=== PATIENT | female | born 1980 | race Caucasian/White ===

== ENCOUNTER 2017-12-15 07:17 | Emergency (ER) | payer SELFPAY | END 2017-12-15 08:10 | disposition home or self-care (01) | LOC: EDH 07:17 | DX: S16.1XXA Strain of muscle, fascia and tendon at neck level, initial encounter (principal); Z72.0 Tobacco use; X58.XXXA Exposure to other specified factors, initial encounter; Y93.84 Activity, sleeping; Y92.098 Other place in other non-institutional residence as the place of occurrence of the external cause; Y99.8 Other external cause status | CPT/HCPCS: 99281 ==

== ENCOUNTER 2025-06-21 21:24 | Inpatient (IN) | payer OTHER ==
[~2025-06-21] VITALS: Ht 167.6 cm; Wt 61.0 kg
--- NOTE | 2025-06-21 21:43 | EKG ---
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
[2025-06-21 21:57] LABS: IMMATURE GRANULOCYTE ABSOLUTE 0.01 K/uL (0-1); NUCLEATED RED BLOOD CELLS 0.0 % (0.0-0.19); PLATELET COUNT (AUTO) 312 K/uL (130-400); RED BLOOD CELL COUNT(AUTO) 4.14 MIL/uL (4.00-5.50); RED CELL DISTRIBUTION WIDTH 12.6 % (11.0-15.5); WHITE BLOOD COUNT (AUTO) 9.2 K/uL (4.8-10.8)
[2025-06-21 22:04] LABS: CREATININE 0.7 mg/dL (0.5-1.0); GLOMERULAR FILTR. RATE CALC 109.0 mL/min (>90); GLUCOSE,RANDOM 87.0 mg/dL (70-105); SODIUM SERUM 141.0 mmol/L (136-145); UREA NITROGEN, BLOOD 12.0 mg/dL (7-18)
[2025-06-21] MEDS: 0.9%NACL 1000ML 1,000 ML IV ONE (22:09)
[2025-06-21 22:33] LABS: ASPARTATE AMINOTRANSFERASE 21.0 U/L (10-37); CREATINE KINASE, TOTAL 32.0 U/L (21-232); TOTAL PROTEIN, SERUM 6.6 g/dL (6.0-8.3)
[2025-06-21 23:10] LABS: APPEARANCE,URINE CLEAR (CLEAR); GLUCOSE, URINE (UA) NEGATIVE (NEGATIVE); LEUKOCYTE ESTERASE ,URINE NEGATIVE Leu/uL (NEGATIVE); NITRATE,URINE NEGATIVE (NEGATIVE); OCCULT BLOOD,URINE NEGATIVE (NEGATIVE)
[2025-06-21 23:11] LABS: ADD UA MICROSCOPIC NO
--- NOTE | 2025-06-21 23:29 | NUR ---
TRANSFERED CARE TO CN AT THIS TIME
--- NOTE | 2025-06-21 23:52 | ERN ---
ED Note History of Present Illness Stated Complaint: DIZZINESS, ABD PAIN, BLURRING TO LEFT EYE, X 1 WK Chief Complaint: Dizzy/Light Headed Time Seen by MD: 21:42 Time Seen by Midlevel: 21:42 Dictation: The patient is a 45-year-old female with history of tubal ligation who presents to the emergency department with complaints of right-sided headache, generalized weakness, dizziness onset two weeks ago. Patient reports that for the past three days she has had syncopal episodes x3. Patient denies any trauma from the syncope episode. Denies any LOC denies any fevers denies any diarrhea or vomiting. Patient reports also that she has been having right upper quadrant pain with nausea. Allergies: Coded Allergies: No Known Allergies (Unverified Allergy, Unknown, 06/21/25) Past Medical History Past Medical History: No Pertinent History Surgical History: Tonsillectomy, Other Surgical History Other: TUBAL LIGATION LMP: May 23, 2025 RN Note Reviewed/Agreed w/PFSH: Yes Review of System Dictation Constitutional: Negative for fever,chills, and weight loss Eyes: Negative for injury, pain,redness, and discharge ENT: Negative for injury,pain or swelling Cardiovascular: Negative for chest pain, palpitations, and edema Respiratory: Negative for shortness of breath, cough, and wheezing, Abdomen/GI: Negative for vomiting, diarrhea, and constipation positive for abdominal pain, nausea Back: Negative for injury and pain : Negative for injury, bleeding and discharge MS/Extremity: Negative for injury and deformity Skin: Negative for rash, and discoloration Neuro: Negative for numbness, tingling, and seizure positive for headache, weakness, dizziness Psych: Negative for suicide ideation, homicidal ideation, and hallucinations Initial Vital Sign VS Vital Signs Date Time Temp Pulse Resp B/P (MAP) Pulse Ox O2 Delivery O2 Flow Rate FiO2 06/21/25 21:30 97.9 73 20 95/65 100 Room Air 06/21/25 23:07 0 21 Physical Exam Dictation Vital Signs reviewed General Appearance: Alert, oriented x 3, no acute distress, well developed, nourished. Head and Face: non-traumatic. Eyes: PERRL, pink conjunctivas, eyelid no trauma, anterior chamber with arcus senilis. Ears: Pinnas intact and no signs of trauma or erythema ear canals clear and no discharge TM no erythema Nose: No discharge, no bleeding. Oropharynx: Mouth normal, tongue pink. pharynx clear,no erythema, tonsils no exudates, no abscesses noted, mucous membrane moist Neck: Supple, non-tender, no thyromegaly, no masses, no JVD, no bruits Breast:Deferred Chest:No tenderness, no crepitus, no paradoxical movement, no retractions Lungs:Clear, well-ventilated, symmetric, no rales, no wheezing, no rhonchi, no stridor, good breath sounds bilaterally Heart: Regular rate, regular rhythm, no murmur, no gallops Vascular: no peripheral edema, Abdomen: Soft, positive bowel sounds, nondistended, no guarding, nontender, no rebound, no masses no hepatomegaly, no splenomegaly, no Muller's sign, no hernias. Rectal: Deferred Genital: Deferred Neurological: Normal speech, motor function intact, sensory function intact , upper extremities equal in strength, lower extremities equal in strength Musculoskeletal: Neck nontender, full range of motion, back nontender, full range of motion, Extremities: nontender, full range of motion Skin: Color pink, dry, no turgor, no rash, no lacerations, no abrasions, no contusions. Lymphatic: Deferred Results (Laboratory/Radiology) Laboratory/Radiology Laboratory Tests Test 06/21/25 21:46 06/21/25 23:00 White Blood Count 9.2 K/uL (4.8-10.8) Red Blood Count 4.14 MIL/uL (4.00-5.50) Hemoglobin 13.4 g/dL (12.0-16.0) Hematocrit 40.7 % (36-48) Mean Corpuscular Volume 98.3 fL (79-99) Mean Corpuscular Hemoglobin 32.4 pg (27.0-33.0) Mean Corpuscular Hemoglobin Concent 32.9 g/dL (32.0-36.0) Red Cell Distribution Width 12.6 % (11.0-15.5) Platelet Count 312 K/uL (130-400) Mean Platelet Volume 10.1 fL (7.5-10.5) Immature Granulocyte % (Auto) 0.1 % (0-1) Neutrophils (%) (Auto) 50.0 % (40.0-77.0) Lymphocytes (%) (Auto) 38.7 % (21.0-51.0) Monocytes (%) (Auto) 5.8 % (3.0-13.0) Eosinophils (%) (Auto) 5.0 % (0.0-8.0) Basophils (%) (Auto) 0.4 % (0.0-5.0) Neutrophils # (Auto) 4.6 K/uL (1.8-7.7) Lymphocytes # (Auto) 3.6 K/uL (1.0-4.8) Monocytes # (Auto) 0.5 K/uL (0.1-1.0) Eosinophils # (Auto) 0.46 K/uL (0.00-0.70) Basophils # (Auto) 0.04 K/uL (0.00-0.20) Absolute Immature Granulocyte (auto 0.01 K/uL (0-1) Nucleated Red Blood Cells 0.0 % (0.0-0.19) Sodium Level 141 mmol/L (136-145) Potassium Level 3.8 mmol/L (3.5-5.1) Chloride Level 107 mmol/L (101-111) Carbon Dioxide Level 31 mmol/L (21-32) Blood Urea Nitrogen 12 mg/dL (7-18) Creatinine 0.7 mg/dL (0.5-1.0) Glomerular Filtration Rate Calc 109 mL/min (>90) Random Glucose 87 mg/dL (70-105) Total Calcium 8.8 mg/dL (8.5-10.1) Total Bilirubin 0.6 mg/dL (0.2-1.0) Direct Bilirubin 0.2 mg/dL (0.0-0.3) Aspartate Amino Transf (AST/SGOT) 21 U/L (10-37) Alanine Aminotransferase (ALT/SGPT) 37 U/L (12-78) Alkaline Phosphatase 61 U/L (50-136) Total Creatine Kinase 32 U/L (21-232) Troponin I High Sensitivity < 4 ng/L (4-50) L Total Protein 6.6 g/dL (6.0-8.3) Albumin 3.8 g/dL (3.5-5.0) Lipase 19 U/L (16-77) Urine Color YELLOW (YELLOW) Urine Appearance CLEAR (CLEAR) Urine pH 6.5 (5.0-8.0) Urine Specific Epps 1.021 (1.001-1.031) Urine Protein NEGATIVE mg/dL (NEGATIVE) Urine Glucose (UA) NEGATIVE mg/dL (NEGATIVE) Urine Ketones NEGATIVE mg/dL (NEGATIVE) Urine Occult Blood NEGATIVE (NEGATIVE) Urine Nitrate NEGATIVE (NEGATIVE) Urine Bilirubin NEGATIVE mg/dL (NEGATIVE) Urine Urobilinogen 0.2 mg/dL (0.2-1.0) Urine Leukocyte Esterase NEGATIVE Zoey/uL Urine HCG, Qualitative NEGATIVE (NEGATIVE) REASON: abd pain ORDERING PHYSICIAN: DAVID SILVER END STAPLER PROCEDURE: ABDRUQLTD - US ABDOMINAL RUQ\LTD EXAM: US Abdomen, Right Upper Quadrant. CLINICAL HISTORY: Abdominal pain. TECHNIQUE: Right upper quadrant sonography performed with image documentation. COMPARISON: None provided. FINDINGS: LIVER: Within normal limits in size and echogenicity. No mass. Liver measures 14.7 cm. GALLBLADDER: The gallbladder appears normal. No gallbladder wall thickening seen. Wall thickness measures 1 mm. No gallstones are evident. COMMON BILE DUCT: Within normal limits in size. Common bile duct measures 5 mm. PANCREAS: The visualized pancreas appears within normal limits. The distal pancreas is obscured by bowel gas. RIGHT KIDNEY: Unremarkable. The right kidney measures 10.5 x 3.4 x 3.9 cm. Normal renal contours. 9 x 9 x 7 mm echogenic lesion likely an angiomyolipoma. No calculus. No hydronephrosis. IMPRESSION: No acute pathology. 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 /[place] REASON: syncope ORDERING PHYSICIAN: DAVID SILVER END STAPLER PROCEDURE: HEAD WO - CT HEAD/BRAIN W/O CONTRAST EXAM: Non-contrast CT examination of the Brain CLINICAL HISTORY: Syncope. TECHNIQUE: Thin collimated axial CT images of the brain were obtained, with sagittal and coronal reformatted images also submitted. CT scan done according to ALARA (As Low as Reasonably Achievable). CONTRAST USED: None. COMPARISON: None provided. FINDINGS: No acute intracranial abnormality is present. No acute cortical infarction, hemorrhage, mass, or mass effect. No hydrocephalus or abnormal extra-axial fluid collections. The posterior fossa is unremarkable. The skull base and calvarium are intact. The included portions of the paranasal sinuses and mastoid air cells are clear. IMPRESSION: No acute intracranial abnormality is present. /[place] REASON: cp ORDERING PHYSICIAN: DAVID SILVER PROCEDURE: CXR1VW - CHEST 1VW EXAM: CR Chest, 1 view CLINICAL HISTORY: Chest pain. COMPARISON: None provided. FINDINGS: 0.2 cm calcified granuloma in the left mid zone. Mildly hyperinflated lungs, concerning mild bronchial asthma or COPD. The lungs show no infiltrates or other acute findings. No pleural effusion or pneumothorax. The cardiomediastinal silhouette is within normal limits. No acute osseous abnormality. IMPRESSION: No acute cardiopulmonary process is evident. 0.2 cm calcified granuloma in the left mid zone. Mildly hyperinflated lungs, concerning mild bronchial asthma or COPD. /[place] Labs Reviewed?: Yes EKG: (+) rhythm (Sinus rhythm) EKG Comment: Date:06/21/2025 Time:2138 Ventricular rate:67 DE interval:151 QRS duration:103 QT/QTc:422/446 EKG interpretation: Sinus rhythm Reviewed by ED Attending no STEMI ED Course ED Course Orders Procedure Category Date Status Time Vital Signs Per CPOE 06/21/25 Transmitted Routine 21:36 Saline Lock Iv CPOE 06/21/25 Transmitted 21:36 Cbc With Differential LAB 06/21/25 Complete 21:36 Lipase LAB 06/21/25 Complete 21:36 Urinalysis Profile LAB 06/21/25 Complete 21:36 Basic Metabolic Panel LAB 06/21/25 Complete 21:36 12 Lead Ekg Tracing- EKG 06/21/25 Complete Technical 21:37 Hepatic Function Panel LAB 06/21/25 Complete 21:59 Orthostatic Vital CPOE 06/21/25 Transmitted Signs 21:59 Ct Head/Brain W/O CT 06/21/25 Resulted Contrast 21:59 Us Abdominal Ruq\Ltd US 06/21/25 Resulted 21:59 Troponin I High LAB 06/21/25 Complete Sensitivity 21:59 Creatine Kinase, Total LAB 06/21/25 Complete 21:59 0.9%Nacl 1000ml (Ns PHA 06/21/25 Complete 1000ml) 22:00 Ondansetron 4mg Inj PHA 06/21/25 Complete (Zofran 4mg Inj) 22:00 Pantoprazole 40mg Inj PHA 06/21/25 Complete (Protonix 40mg Inj 22:00 Chest 1vw RAD 06/21/25 Resulted 22:53 ,Urine Test LAB 06/21/25 Complete 23:47 Fall Precautions CPOE 06/22/25 Transmitted 01:32 Neuro Checks Every 4 CPOE 06/22/25 Transmitted Hours 01:32 Echo 2-D Complete ECHO 06/22/25 Logged 01:32 Us Carotid Duplex US 06/22/25 Logged 01:32 Orthostatic Vital CPOE 06/22/25 Transmitted Signs 01:32 Basic Metabolic Panel LAB 06/22/25 Logged 04:00 Cbc With Differential LAB 06/22/25 Logged 04:00 Magnesium LAB 06/22/25 Logged 04:00 Phosphorus LAB 06/22/25 Logged 04:00 Acetaminophen 325 Tab PHA 06/22/25 In Process (Tylenol 325mg Tab 02:00 Enoxaparin Sodium 40 PHA 06/22/25 In Process Mg/0.4 Ml (Lovenox) 09:00 Famotidine 20mg Tab PHA 06/22/25 In Process (Pepcid 20mg Tab) 09:00 Hydralazine 20mg Inj PHA 06/22/25 Logged (Apresoline 20mg In 02:00 Morphine 4mg Syg PHA 06/22/25 Logged (Morphine 4mg Syg) 02:00 Ondansetron 4mg Inj PHA 06/22/25 Logged (Zofran 4mg Inj) 02:00 Admit Orders ADM 06/22/25 Transmitted 01:36 Current Medications Medications (Trade) Dose Ordered Sig/Willy Route PRN Reason Start Time Stop Time Status Last Admin Dose Admin Acetaminophen (TYLenol 325MG TAB) 650 mg Q6H PRN PO TEMPERATURE GREATER THAN 101.5 06/22/25 02:00 07/22/25 01:59 Enoxaparin Sodium (Lovenox) 40 mg DAILY SQ 06/22/25 09:00 07/22/25 08:59 Famotidine (Pepcid 20mg Tab) 20 mg DAILY PO 06/22/25 09:00 07/22/25 08:59 Hydralazine HCl (APRESOLine 20MG INJ) 10 mg Q6H PRN IV For:SBP above 160;DBP above 90 06/22/25 02:00 07/22/25 01:59 Morphine Sulfate (morPHINE 4MG SYG) 2 mg Q4H PRN IVP SEVERE PAIN (7-10) 06/22/25 02:00 06/29/25 01:59 UNV Ondansetron HCl (zoFRAN 4MG INJ) 4 mg ONCE ONCE IVP 06/21/25 22:00 06/21/25 22:02 DC 06/21/25 22:10 Ondansetron HCl (zoFRAN 4MG INJ) 4 mg Q6H PRN IV NAUSEA/VOMITING 06/22/25 02:00 07/22/25 01:59 Pantoprazole Sodium (PROTonix 40MG INJ) 40 mg ONCE ONCE IVP 06/21/25 22:00 06/21/25 22:02 DC 06/21/25 22:10 Sodium Chloride 1,000 ml @ 0 mls/hr ONCE ONCE IV 06/21/25 22:00 06/21/25 22:02 DC 06/21/25 22:09 Vital Signs Date Time Temp Pulse Resp B/P (MAP) Pulse Ox O2 Delivery O2 Flow Rate FiO2 06/21/25 23:25 98.2 55 16 112/70 98 Room Air* 0 21 06/21/25 23:07 98.2 65 16 115/70 98 Room Air* 0 21 06/21/25 21:30 97.9 73 20 95/65 100 Room Air Medical Decision Making MDM MDM: The patient is a 45-year-old female with history of tubal ligation who presents to the emergency department with complaints of right-sided headache, generalized weakness, dizziness onset two weeks ago. Patient reports that for the past three days she has had syncopal episodes x3. Patient denies any trauma from the syncope episode. Denies any LOC denies any fevers denies any di arrhea or vomiting. Patient reports also that she has been having right upper quadrant pain with nausea. CBC showed no leukocytosis, no anemia, chemistry showed no electrolyte imbalance, negative troponin, normal liver enzymes, negative lipase, urinalysis unremarkable. CT head showed no acute pathology. X-ray showed hyperinflated lungs, Patient received IV fluids. Reports she still feels weak and reports concerned for syncopal episodes. Given patient already had multiple syncope episode so to home We will admit patient for further evaluation and management. Differential diagnosis: Intracerebral hemorrhage, orthostatic hypotension, dehydration, gallstones, electrolyte imbalance, tachyarrhythmia Comorbidities: Tubal ligation Tests considered and not ordered secondary to shared decision making include: none Previous outside records reviewed: none Risk of complication and/or morbidity or mortality of patient management: The patient meets criteria for admission. Need for emergency major/minor surgery: No There are no social concerns with this patient. I independently interpreted the tests I ordered (labs, urinalysis, etc.). I discussed the case with the hospitalist for admission. Raymond TAPIA who accepts admission I discussed the case with the following specialists: none. Historian: pateint. I independently interpreted imaging studies and EKGs that I ordered (US, CT, XR, EKG, etc.). External chart review: none. Medical management and examination interpretation discussions were had by me with other qualified healthcare professionals as indicated for the patient's care. DX & DISP Disposition: Inpatient Decision to Admit Date: Jun 22, 2025 Decision to Admit Time: 01:43 Departure Impression: Primary Impression: Syncope Additional Impressions: Weakness, Abdominal pain Condition: Stable Referrals: JIMMY PEPE DO (PCP) I have reviewed the case, and I agree with, Diagnosis and Plan DAVID SILVER Jun 21, 2025 23:52
[2025-06-22] VITALS (9 sets, daily range): BP systolic 97–118; BP diastolic 53–79; PULSE 51–81; RESP 16–20; TEMP 97.5–98.2; O2SAT 100
--- NOTE | 2025-06-22 00:15 | HMCIMG ---
EXAM: US Abdomen, Right Upper Quadrant. CLINICAL HISTORY: Abdominal pain. TECHNIQUE: Right upper quadrant sonography performed with image documentation. COMPARISON: None provided. FINDINGS: LIVER: Within normal limits in size and echogenicity. No mass. Liver measures 14.7 cm. GALLBLADDER: The gallbladder appears normal. No gallbladder wall thickening seen. Wall thickness measures 1 mm. No gallstones are evident. COMMON BILE DUCT: Within normal limits in size. Common bile duct measures 5 mm. PANCREAS: The visualized pancreas appears within normal limits. The distal pancreas is obscured by bowel gas. RIGHT KIDNEY: Unremarkable. The right kidney measures 10.5 x 3.4 x 3.9 cm. Normal renal contours. 9 x 9 x 7 mm echogenic lesion likely an angiomyolipoma. No calculus. No hydronephrosis. IMPRESSION: No acute pathology. 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 /[place]
--- NOTE | 2025-06-22 00:40 | HMCIMG ---
EXAM: Non-contrast CT examination of the Brain CLINICAL HISTORY: Syncope. TECHNIQUE: Thin collimated axial CT images of the brain were obtained, with sagittal and coronal reformatted images also submitted. CT scan done according to ALARA (As Low as Reasonably Achievable). CONTRAST USED: None. COMPARISON: None provided. FINDINGS: No acute intracranial abnormality is present. No acute cortical infarction, hemorrhage, mass, or mass effect. No hydrocephalus or abnormal extra-axial fluid collections. The posterior fossa is unremarkable. The skull base and calvarium are intact. The included portions of the paranasal sinuses and mastoid air cells are clear. IMPRESSION: No acute intracranial abnormality is present. /[place]
--- NOTE | 2025-06-22 01:07 | HMCIMG ---
EXAM: CR Chest, 1 view CLINICAL HISTORY: Chest pain. COMPARISON: None provided. FINDINGS: 0.2 cm calcified granuloma in the left mid zone. Mildly hyperinflated lungs, concerning mild bronchial asthma or COPD. The lungs show no infiltrates or other acute findings. No pleural effusion or pneumothorax. The cardiomediastinal silhouette is within normal limits. No acute osseous abnormality. IMPRESSION: No acute cardiopulmonary process is evident. 0.2 cm calcified granuloma in the left mid zone. Mildly hyperinflated lungs, concerning mild bronchial asthma or COPD. /[place]
--- NOTE | 2025-06-22 01:36 | HP ---
History of Present Illness Reason for Visit: dizziness History of Present Illness Ms. Ponce is a 45-year-old female that was seen and examined today on 06/22/2025. Patient is a good historian of personal health Patient came to the emergency department with a chief complaint of dizziness. Onset was two weeks ago. Location is head. Duration is on and off. Character is described as difficulty getting balance. Symptoms seemingly alleviated on their own. There was no aggravating factors. Patient denies any associated chest pain or shortness and breath. Patient reports associated headache and weakness. Today in the emergency department CBC unremarkable, chemistry unremarkable, urinalysis unremarkable, abdominal ultrasound unremarkable, chest x-ray unremarkable, CT of head unremarkable. Emergency room physician recommended patient be admitted with a diagnosis of dizziness. Past Medical History ADDITIONAL PAST MEDICAL HISTORY: [Denies] SOCIAL HISTORY: [Patient smokes half a pack of cigarettes daily, alcohol use, drug use. Patient denies drug use however her drug screen is positive for benzodiazepine, cocaine and marijuana. Patient lives with her oldest daughter, Chapis ponce. And her 4-year-old grandson that she has custody of. SURGICAL HISTORY: [BTL, tonsillectomy] Review of Systems General: No Fever, No Chills, No Night Sweats, No Fatigue, No Malaise, No Appetite, No Other HEENT: No Head Aches, No Visual Changes, No Eye Pain, No Ear Pain, No Dysphasia, No Sinus Congestion, No Post Nasal Drip, No Sore Throat, No Other Pulmonary: No Dyspnea, No Cough, No Pleuritic Chest Pain, No Other Cardiovascular: Lt Headedness; No: Chest Pain, Palpitations, Orthopnea, Paroxysmal Noc. Dyspnea, Edema, Other Gastrointestinal: No: Nausea, Vomiting, Abdominal Pain, Diarrhea, Constipation, Melena, Hematochezia, Other Genitourinary: No Dysuria, No Frequency, No Incontinence, No Hematuria, No Retention, No Other Musculoskeletal: No: other, neck pain, shoulder pain, arm pain, back pain, hand pain, leg pain, foot pain Skin: No Urticaria, No Rash, No Other Neurological: Weakness, Other (Headache); No: Numbness, Incoordination, Change in speech, Confusion, Seizures Allergies: Coded Allergies: No Known Allergies (Unverified Allergy, Unknown, 06/21/25) No Active Prescriptions or Reported Meds Exam Vital Signs Vital Signs Date Time Temp Pulse Resp B/P (MAP) Pulse Ox O2 Delivery O2 Flow Rate FiO2 06/21/25 23:25 98.2 55 16 112/70 98 Room Air* 0 21 General Appearance: Alert, Oriented X3, Cooperative, No acute distress HEENT: Atraumatic, EOMI Respiratory: Clear to auscultation, Normal air movement, NL respiratory effort Cardiovascular: Regular rate, Regular rhythm, Normal S1, Normal S2 Abdominal: Normal bowel sounds, Soft, No tenderness Extremities: No edema Skin: No significant lesion Neuro: Normal speech, Strength at 5/5 X4 ext, Sensation intact, Cranial nerves 3-12 NL Psych/Mental Status: Mental status NL, Mood NL, Thoughts/Content NL Assessment/Plan ASSESSMENT: [ Dizziness, POA Tobacco dependence, POA Polysubstance abuse] PLAN: [ Admit patient to medical floor as inpatient status. Check orthostatic vital signs once per shift Fall precautions Ultrasound carotid Doppler, follow up with the results 2D echo, follow up with the results Neuro checks every 4 hours with the vital signs (check GCS, level of consciousness, extremity movement, pupil reaction, hand grasp strength, speech clarity Patient denies any substance abuse however her urine drug screen is positive for cocaine, marijuana and benzodiazepines. I suspect this may contributing to her dizziness episodes. Consult patient on smoking cessation Nicotine patch 14 mg transdermally once daily GI prophylaxis, famotidine DVT prophylaxis, Lovenox ADVANCED CARE PLANNING 1. Which of the following were discussed? Hospice Care - Yes Therapeutic options - yes Advance Directives - Yes - patient states she does not have any advance directives in place at this time. Other discussions - patient wishes to remain a full code at this time 2. Discussed with who? Patient 3. Voluntary nature of this service was explained to the patient? Yes 4. Amount of time spent - ___16 minutes____ 5. Reviewed by Physician? (if this service was performed by NPP) Yes This document was generated in part using voice recognition software, occasional wrong word or sound alike substitutions may have occurred due to the inherent limitations of voice recognition software. Read the chart carefully and re cognize using context, where the substitutions have occurred. Although every effort was made to edit the content, locomotive operator and typing errors may occur ATTESTATION BY PHYSICIAN I have seen and examined the patient. I reviewed the documentation, medical decision making, and treatment plan as noted by the mid-level provider above. I agree with the findings and plan of care. [facility] Jun 22, 2025 01:35
--- NOTE | 2025-06-22 02:30 | HMCIMG ---
EXAM: Ultrasound Duplex Study of Bilateral Carotid and Vertebral Arteries. CLINICAL HISTORY: Dizziness. TECHNIQUE: Real-time 2D ferrera-scale ultrasound with color Doppler and spectral waveform analysis of the bilateral carotid and vertebral arteries. COMPARISON: None provided. FINDINGS: RIGHT CAROTID SYSTEM: Common Carotid Artery (CCA): PSV 98 cm/s. No significant stenosis. Internal Carotid Artery (ICA): PSV 97 cm/s. No significant stenosis. External Carotid Artery (ECA): PSV 103 cm/s. Normal flow. ICA/CCA Ratio: 1.0. Within normal limits. Vertebral Artery: Antegrade flow. Velocity 56 cm/s. Plaque: None visualized. LEFT CAROTID SYSTEM: Common Carotid Artery (CCA): PSV 72 cm/s. No significant stenosis. Internal Carotid Artery (ICA): PSV 101 cm/s. No significant stenosis. External Carotid Artery (ECA): PSV 77 cm/s. Normal flow. ICA/CCA Ratio: 1.4. Within normal limits. Vertebral Artery: Antegrade flow. Velocity 63 cm/s. Plaque: None visualized. SOFT TISSUES: No incidental abnormalities noted. IMPRESSION: No hemodynamically significant stenosis identified in the bilateral carotid or vertebral arteries as per NASCET criteria. /[place]
[2025-06-22 03:28] LABS: AMPHET/METH SCREEN,URINE NEGATIVE (NEGATIVE); BARBITURATE SCREEN, URINE NEGATIVE (NEGATIVE); CANNABINOID SCREEN,URINE POSITIVE (NEGATIVE); COCAINE SCREEN,URINE POSITIVE (NEGATIVE)
[2025-06-22] MEDS: NICOTINE 14 MG/ 24 HR PATCH TD ONE (04:41)
--- NOTE | 2025-06-22 05:11 | NUR ---
ORTHOSTATIC VITALS DONE AT 0215. BED 109/68 P80 O2 100% STANDING 115/74 P83 O2 100%
[2025-06-22 05:56] LABS: IMMATURE GRANULOCYTE ABSOLUTE 0.01 K/uL (0-1); NUCLEATED RED BLOOD CELLS 0.0 % (0.0-0.19); PLATELET COUNT (AUTO) 275 K/uL (130-400); RED BLOOD CELL COUNT(AUTO) 3.59 MIL/uL (4.00-5.50); RED CELL DISTRIBUTION WIDTH 12.5 % (11.0-15.5); WHITE BLOOD COUNT (AUTO) 9.2 K/uL (4.8-10.8)
[2025-06-22 06:22] LABS: CREATININE 0.7 mg/dL (0.5-1.0); GLOMERULAR FILTR. RATE CALC 109.0 mL/min (>90); GLUCOSE,RANDOM 87.0 mg/dL (70-105); PHOSPHORUS 3.1 mg/dL (2.5-4.9); SODIUM SERUM 138.0 mmol/L (136-145); UREA NITROGEN, BLOOD 10.0 mg/dL (7-18)
[2025-06-22] MEDS: FAMOTIDINE 20MG TAB PO SCH (08:40)
[2025-06-22] MEDS: ENOXAPARIN SODIUM 40 MG/0.4 ML SYRINGE SQ SCH (08:40)
[2025-06-22] MEDS ORDERED: MAGNESIUM 2GM PREMIX 50ML 50 ML IV PRN (11:00)
--- NOTE | 2025-06-22 11:46 | NUR ---
DCP: HOME Pt currently lives with dgt Gladys Plummer [phone] and david. Pt does not report having any DME, home health, or provider services. Pt denies any need for referrals for substance abuse. PCP is Dr. Jemima Goodman and uses [facility] for any RX needs. At [place] pt will want to go home and family can assist with transportation. Addendum: 06/22/25 at 1151 by AMOS FANG SS Amended: Links added.
--- NOTE | 2025-06-22 13:56 | HMCSR ---
APPROVED REPORT EXAM: Two-dimensional and M-mode echocardiogram with Doppler and color Doppler. INDICATION ICD: Dizziness 2D Dimensions RVDd3.8 cmLVEF(%)58.4 (>50%)LVED Vol(simp.)83.0 mL IVSd0.6 (0.7-1.1cm)FS(%)31 %LVES Vol(simp.)33.0 mL LVDd4.3 (3.8-5.6cm)LA (2D)2.9 (1.6-4.0cm)LVEF(%, simp.)60 % PWd0.6 (0.7-1.1cm)Ao Root(2D)2.8 (2.0-3.7cm)LA ESV INDEX (BP)26.65 mL/m2 IVSs0.8 cmLVOT diam2.3 (1.8-2.4cm) LVDs3.0 (2.5-4.0cm)IVC diam1.8 cm PWs0.8 cm Deformation Strain Apical 4-21.6 % Apical 2-22.5 % Apical 3-23.7 % Global Strain-22.6 % M-Mode Dimensions EPSS0.6 cm LA (MM)3.4 (1.6-4.0cm) Ao Root(MM)2.6 (2.0-3.7cm) Aortic Valve AoV Vmax1.5 m/Karel Peak GR8.4 mmHgLVOT Vmax1.0 m/s AoV VTI0.3 mAo Mean GR4.2 mmHgLVOT VTI0.23 m INGRID (VMAX)2.80 cm2AVA (VTI) 2.8 cm2 Mitral Valve MV E Vmax97.9 cm/sDECEL Pjlx940 ms MV A Vmax36.8 cm/sP 1/2 T60 ms E/A ratio2.7MVA (PHT)3.7 cm2 TDI E/E' Zzcodd75.0E/E' Lateral7.7 Medial E' Peak V7.54 cm/sLateral E' Peak V12.79 cm/s Pulmonary Valve PV Vmax0.9 m/sPV VTI0.23 mPV Mean GR1.7 mmHg PV Peak GR3.0 mmHgPI End Keira. Connor 93.9 cm/s Tricuspid Valve TR Vmax2.4 m/sRAP (EST) 3 cjJcTRBK64.6 mmHg TR Peak GR24.6 mmHg Left Ventricle The left ventricle is normal size. GLS -23.0% There is normal left ventricular wall thickness. LVEF i s 60-65%. The left ventricular diastolic function is normal. Right Ventricle The right ventricle is normal size. The right ventricular systolic function is normal. Atria The left atrium size is normal. The right atrium size is normal. Aortic Valve The aortic valve is normal in structure. No aortic regurgitation is present. There is no aortic valvu lar stenosis. Mitral Valve The mitral valve is normal in structure. There is trivial mitral valve regurgitation noted. There is no mitral valve stenosis. Tricuspid Valve The tricuspid valve is normal in structure. There is no trace of tricuspid valve regurgitation noted. Pulmonic Valve The pulmonary valve is normal in structure. There is trace of pulmonic valvular regurgitation. Great Vessels The aortic root is normal in size. The IVC is normal in size and collapses >50% with inspiration. Pericardium There is no pericardial effusion. Other Information Quality : Adequate Conclusion LVEF is 60-65%. GLS -23.0%
[2025-06-22] MEDS: PoTASSium chloRIDE 20MEQ ER 20 MEQ ERTAB PO PRN (15:23)
--- NOTE | 2025-06-22 16:28 | PN ---
[facility] PROGRESS NOTE Date of Service: Jun 22, 2025 Time of Service: 16:21 SUBJECTIVE: She is a 45 year old female with no past medical history and she surgical history of BTL and tonsillectomy came to the hospital with complaint of dizziness which started 2weeks, on and off, vertigo, blurred vision in left eye, headache on right side. There was no aggravating factors. She also complained of abdominal pain at epigastrium region. Eating food makes the pain worse. Had nausea yesterday. She also had constant back pain which is more on the right side and she feels like her butt bone is breaking Patient denies any associated chest pain or shortness and breath. She had a fall yesterday and has a scrap on right leg. She also complained of tingling of right hand. She smokes half a pack of cigarettes daily, alcohol use, drug use. In the emergency department CBC un remarkable, chemistry unremarkable, urinalysis unremarkable, abdominal ultrasound unremarkable, chest x-ray unremarkable, CT of head unremarkable. She denies drug use however her drug screen is positive for benzodiazepine, cocaine and marijuana. Patient lives with her oldest daughter, Chapis quintanilla and her 4-year-old grandson that she has custody of. She was admitted for further management. 06/22/2025: Patient is seen and evaluated in the room 415. Patient has no improvement in her symptoms. She has tenderness in the epigastrium region. Her vitals are in the normal range. Orthostatic vitals are normal. Her labs are in the normal range except for Hb is 11.8, potassium is 3.3, calcium is 8.2. We ordered CT abdomen and pelvis without contrast for the abdominal pain and CT lumbosacral spine, X-ray sacrum for lower back pain. We also ordered GI consult and waiting for their recommendations. Also ordered Hepatitis B, C, HIV. We changed famotidine from oral to IV. REVIEW OF SYSTEMS CONSTITUTIONAL: Lower back pain, tingling sensation in right hand Denies fevers, chills, or night sweats. No unintentional weight loss reported. NEUROLOGICAL: Dizziness Denies headache, amaurosis fugax, motor weakness, sensory deficit, gait abnormalities, or tremors. ENT: No hearing loss, otalgia, otorrhea, rhinitis, rhinorrhea, hoarseness, or sore throat. CARDIOVASCULAR: Denies any exertional angina, dyspnea on exertion, orthopnea, paroxysmal nocturnal dyspnea, palpitations, life-threatening arrhythmias, claudication. PULMONARY: Denies any shortness of breath, cough, phlegm/sputum, hemoptysis, pleuritic chest pain. SLEEP: Denies morning headaches, daytime somnolence or napping. Denies difficulty falling asleep, staying asleep, waking from sleep. Denies knowledge of snoring. GASTROINTESTINAL: Abdominal Pain Denies any type of dysphagia to either liquids or solids. Denies nausea, vomiting, pyrosis, early satiety, diarrhea, constipation, or changes in stool consistency or caliber. Denies coffee-ground emesis, hematemesis, hematochezia, or melanotic stools. GENITOURINARY: Denies frequency, urgency, nocturia, hematuria or incontinence (Storage/Irritative symptoms.) Low urinary stream, straining to void, urinary intermittency or hesitancy, splitting of the voiding stream, terminal dribbling. ENDOCRINOLOGIC: Denies polyuria, polydipsia, polyphagia or heat/cold intolerances. HEMATOLOGIC: Denies thrombophilia/previous clots, or coagulopathy/bleeding disorders. ONCOLOGIC: Denies personal history of malignancy. DERMATOLOGIC: Denies rashes or pruritus. PSYCHIATRIC: Denies any suicidal or homicidal ideation. Denies hallucinations. PHYSICAL EXAM GENERAL APPEARANCE: The patient is awake, alert, and oriented, in no acute cardiopulmonary distress. NEUROLOGICAL: Cranial nerves II-XII grossly intact. Motor is 5/5 in bilateral upper and lower extremities proximal to distal. No sensory deficits. HEENT: Face is symmetric. Pupils are equal and reactive. Extraocular movements are intact. NECK: Supple. No JVD. No thyromegaly. No submental, submandibular, pre- /postauricular, occipital or supraclavicular lymphadenopathy. CHEST: Normal chest expansion. No Telemetry. LUNGS: Absence of any rales, rhonchi or any wheezing. CARDIOVASCULAR: Regular. S1 and S2 normal. No appreciable rubs, murmurs or gallops. ABDOMEN: Abdominal tenderness at epigastrium Soft and nondistended. There is no rebound, voluntary guarding, or rigidity. : Deferred. No Keith. EXTREMITIES: Non-edematous and not cyanotic. No clubbing. Good capillary refill. SKIN: No skin breakdown. Vital Signs (last 8hr) Date Time Temp Pulse Resp B/P (MAP) Pulse Ox O2 Delivery O2 Flow Rate FiO2 06/22/25 12:00 97.9 61 18 118/79 99 Room Air 06/22/25 08:48 100 Room Air* 0 21 LABS: Laboratory: Test 06/22/25 05:40 06/21/25 23:00 06/21/25 21:46 Range/Units White Blood Count 9.2 4.8-10.8 K/uL Red Blood Count 3.59 L 4.00-5.50 MIL/uL Hemoglobin 11.8 L 12.0-16.0 g/dL Hematocrit 34.9 L 36-48 % Mean Corpuscular Volume 97.2 79-99 fL Mean Corpuscular Hemoglobin 32.9 27.0-33.0 pg Mean Corpuscular Hemoglobin Concent 33.8 32.0-36.0 g/dL Red Cell Distribution Width 12.5 11.0-15.5 % Platelet Count 275 130-400 K/uL Mean Platelet Volume 10.3 7.5-10.5 fL Immature Granulocyte % (Auto) 0.1 0-1 % Neutrophils (%) (Auto) 45.1 40.0-77.0 % Lymphocytes (%) (Auto) 42.1 21.0-51.0 % Monocytes (%) (Auto) 7.0 3.0-13.0 % Eosinophils (%) (Auto) 5.3 0.0-8.0 % Basophils (%) (Auto) 0.4 0.0-5.0 % Neutrophils # (Auto) 4.1 1.8-7.7 K/uL Lymphocytes # (Auto) 3.9 1.0-4.8 K/uL Monocytes # (Auto) 0.6 0.1-1.0 K/uL Eosinophils # (Auto) 0.49 0.00-0.70 K/uL Basophils # (Auto) 0.04 0.00-0.20 K/uL Absolute Immature Granulocyte (auto 0.01 0-1 K/uL Nucleated Red Blood Cells 0.0 0.0-0.19 % Sodium Level 138 136-145 mmol/L Potassium Level 3.3 L 3.5-5.1 mmol/L Chloride Level 107 101-111 mmol/L Carbon Dioxide Level 25 21-32 mmol/L Blood Urea Nitrogen 10 7-18 mg/dL Creatinine 0.7 0.5-1.0 mg/dL Glomerular Filtration Rate Calc 109 >90 mL/min Random Glucose 87 70-105 mg/dL Total Calcium 8.2 L 8.5-10.1 mg/dL Phosphorus Level 3.1 2.5-4.9 mg/dL Magnesium Level 1.80 1.80-2.40 mg/dL Urine Color YELLOW YELLOW Urine Appearance CLEAR CLEAR Urine pH 6.5 5.0-8.0 Urine Specific [place] 1.021 1.001-1.031 Urine Protein NEGATIVE NEGATIVE mg/dL Urine Glucose (UA) NEGATIVE NEGATIVE mg/dL Urine Ketones NEGATIVE NEGATIVE mg/dL Urine Occult Blood NEGATIVE NEGATIVE Urine Nitrate NEGATIVE NEGATIVE Urine Bilirubin NEGATIVE NEGATIVE mg/dL Urine Urobilinogen 0.2 0.2-1.0 mg/dL Urine Leukocyte Esterase NEGATIVE NEGATIVE Zoey/uL Urine HCG, Qualitative NEGATIVE NEGATIVE Urine Opiates Screen NEGATIVE NEGATIVE Urine Barbiturates Screen NEGATIVE NEGATIVE Urine Phencyclidine Screen NEGATIVE NEGATIVE Urine Amphetamines Screen NEGATIVE NEGATIVE Urine Benzodiazepines Screen POSITIVE H NEGATIVE Urine Cocaine Screen POSITIVE H NEGATIVE Urine Marijuana (THC) Screen POSITIVE H NEGATIVE Total Bilirubin 0.6 0.2-1.0 mg/dL Direct Bilirubin 0.2 0.0-0.3 mg/dL Aspartate Amino Transf (AST/SGOT) 21 10-37 U/L Alanine Aminotransferase (ALT/SGPT) 37 12-78 U/L Alkaline Phosphatase 61 50-136 U/L Total Creatine Kinase 32 21-232 U/L Troponin I High Sensitivity < 4 L 4-50 ng/L Total Protein 6.6 6.0-8.3 g/dL Albumin 3.8 3.5-5.0 g/dL Lipase 19 16-77 U/L Current Medications Medications (Trade) Dose Ordered Sig/Willy Route PRN Reason Start Time Stop Time Status Last Admin Dose Admin Acetaminophen (TYLenol 325MG TAB) 650 mg Q6H PRN PO TEMPERATURE GREATER THAN 101.5 06/22/25 02:00 07/22/25 01:59 Enoxaparin Sodium (Lovenox) 40 mg DAILY SQ 06/22/25 09:00 07/22/25 08:59 06/22/25 08:40 40 MG Famotidine (Pepcid 20mg Tab) 20 mg DAILY PO 06/22/25 09:00 06/22/25 12:07 DC 06/22/25 08:40 20 MG Hydralazine HCl (APRESOLine 20MG INJ) 10 mg Q6H PRN IV For:SBP above 160;DBP above 90 06/22/25 02:00 07/22/25 01:59 Magnesium Sulfate 50 ml @ 0 mls/hr PROTOCOL IV 06/22/25 11:00 07/22/25 10:59 Magnesium Sulfate 50 ml @ 0 mls/hr PROTOCOL PRN IV MAG LEVEL BELOW 2.0 06/22/25 11:00 06/22/25 10:48 DC Morphine Sulfate (morPHINE 2MG SYG) 2 mg Q4H PRN IVP SEVERE PAIN (7-10) 06/22/25 02:00 06/29/25 01:59 06/22/25 15:23 2 MG Nicotine (Nicoderm) 14 mg DAILY TD 06/23/25 09:00 07/23/25 08:59 Ondansetron HCl (zoFRAN 4MG INJ) 4 mg Q6H PRN IV NAUSEA/VOMITING 06/22/25 02:00 07/22/25 01:59 Pantoprazole Sodium (PROTonix 40MG INJ) 40 mg DAILY IVP 06/23/25 09:00 07/23/25 08:59 Potassium Chloride 100 ml @ 100 mls/hr AD PRN IV POTASSIUM PROTOCOL 06/22/25 09:30 07/22/25 09:29 Potassium Chloride (K-Dur/Klor-Con 20meq) 20 meq AD PRN PO POTASSIUM PROTOCOL 06/22/25 09:30 07/22/25 09:29 06/22/25 15:23 20 [facility] / RADIOLOGY: [place] [address] IMAGING REPORT Signed PATIENT: SPENSER QUINTANILLA MR#: [id number] : 1980 SEX: F AGE: 45 LOCATION: [facility] ORDER 00 STATUS: REG ER [facility] REPORT#: [id number] SERVICE 58 REASON: abd pain ORDERING PHYSICIAN: DAVID SILVER PROCEDURE: ABDRUQLTD - US ABDOMINAL RUQ\LTD EXAM: US Abdomen, Right Upper Quadrant. CLINICAL HISTORY: Abdominal pain. TECHNIQUE: Right upper quadrant sonography performed with image documentation. COMPARISON: None provided. FINDINGS: LIVER: Within normal limits in size and echogenicity. No mass. Liver measures 14.7 cm. GALLBLADDER: The gallbladder appears normal. No gallbladder wall thickening seen. Wall thickness measures 1 mm. No gallstones are evident. COMMON BILE DUCT: Within normal limits in size. Common bile duct measures 5 mm. PANCREAS: The visualized pancreas appears within normal limits. The distal pancreas is obscured by bowel gas. RIGHT KIDNEY: Unremarkable. The right kidney measures 10.5 x 3.4 x 3.9 cm. Normal renal contours. 9 x 9 x 7 mm echogenic lesion likely an angiomyolipoma. No calculus. No hydronephrosis. IMPRESSION: No acute pathology. 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 /[place] DICTATED BY: MARIS DAVID Jr., MD DATE: 06/22/25113 ELECTRONICALLY SIGNED BY: MARIS DAVID Jr., MD DATE: 06/22/25113 [place] [address] IMAGING REPORT Signed PATIENT: SPENSER QUINTANILLA MR#: [id number] : 1980 SEX: F AGE: 45 LOCATION: [facility] ORDER 00 STATUS: REG ER REPORT#: [id number] SERVICE 58 REASON: syncope ORDERING PHYSICIAN: DAVID SILVER PROCEDURE: HEAD WO - CT HEAD/BRAIN W/O CONTRAST EXAM: Non-contrast CT examination of the Brain CLINICAL HISTORY: Syncope. TECHNIQUE: Thin collimated axial CT images of the brain were obtained, with sagittal and coronal reformatted images also submitted. CT scan done according to ALARA (As Low as Reasonably Achievable). CONTRAST USED: None. COMPARISON: None provided. FINDINGS: No acute intracranial abnormality is present. No acute cortical infarction, hemorrhage, mass, or mass effect. No hydrocephalus or abnormal extra-axial fluid collections. The posterior fossa is unremarkable. The skull base and calvarium are intact. The included portions of the paranasal sinuses and mastoid air cells are clear. IMPRESSION: No acute intracranial abnormality is present. /[place] DICTATED BY: MARIS DAVID Jr., MD DATE: 06/22/25138 ELECTRONICALLY SIGNED BY: MARIS DAVID Jr., MD DATE: 06/22/25138 [place] [id number] IMAGING REPORT Signed PATIENT: SPENSER QUINTANILLA MR#: [id number] : 1980 SEX: F AGE: 45 LOCATION: [facility] ORDER 53 STATUS: [facility] REPORT#: [id number] SERVICE 52 REASON: cp ORDERING PHYSICIAN: DAVID SILVER PROCEDURE: CXR1VW - CHEST 1VW EXAM: CR Chest, 1 view CLINICAL HISTORY: Chest pain. COMPARISON: None provided. FINDINGS: 0.2 cm calcified granuloma in the left mid zone. Mildly hyperinflated lungs, concerning mild bronchial asthma or COPD. The lungs show no infiltrates or other acute findings. No pleural effusion or pneumothorax. The cardiomediastinal silhouette is within normal limits. No acute osseous abnormality. IMPRESSION: No acute cardiopulmonary process is evident. 0.2 cm calcified granuloma in the left mid zone. Mildly hyperinflated lungs, concerning mild bronchial asthma or COPD. /[place] DICTATED BY: MARIS DAVID Jr., MD DATE: 06/22/25205 ELECTRONICALLY SIGNED BY: MARIS DAVID Jr., MD DATE: 06/22/25205 [place] [id number] IMAGING REPORT Signed PATIENT: SPENSER QUINTANILLA MR#: [id number] : 1980 SEX: F AGE: 45 LOCATION: [facility] ORDER 5 STATUS: ADM IN REPORT#: [id number] SERVICE 1 REASON: dizziness ORDERING PHYSICIAN: ROMAN NEAL PROCEDURE: CAROTID - US CAROTID DUPLEX EXAM: Ultrasound Duplex Study of Bilateral Carotid and Vertebral Arteries. CLINICAL HISTORY: Dizziness. TECHNIQUE: Real-time 2D ferrera-scale ultrasound with color Doppler and spectral waveform analysis of the bilateral carotid and vertebral arteries. COMPARISON: None provided. FINDINGS: RIGHT CAROTID SYSTEM: Common Carotid Artery (CCA): PSV 98 cm/s. No significant stenosis. Internal Carotid Artery (ICA): PSV 97 cm/s. No significant stenosis. External Carotid Artery (ECA): PSV 103 cm/s. Normal flow. ICA/CCA Ratio: 1.0. Within normal limits. Vertebral Artery: Antegrade flow. Velocity 56 cm/s. Plaque: None visualized. LEFT CAROTID SYSTEM: Common Carotid Artery (CCA): PSV 72 cm/s. No significant stenosis. Internal Carotid Artery (ICA): PSV 101 cm/s. No significant stenosis. External Carotid Artery (ECA): PSV 77 cm/s. Normal flow. ICA/CCA Ratio: 1.4. Within normal limits. Vertebral Artery: Antegrade flow. Velocity 63 cm/s. Plaque: None visualized. SOFT TISSUES: No incidental abnormalities noted. IMPRESSION: No hemodynamically significant stenosis identified in the bilateral carotid or vertebral arteries as per NASCET criteria. /[place] DICTATED BY: MARIS DAVID Jr., MD DATE: 06/22/25328 ELECTRONICALLY SIGNED BY: MARIS DAVID Jr., MD DATE: 06/22/[address] [address] IMAGING REPORT Signed PATIENT: SPENSER QUINTANILLA MR#: [id number] : 1980 SEX: F AGE: 45 LOCATION: [facility] ORDER 5 STATUS: ADM IN [facility] REPORT#: [id number] SERVICE 0132 REASON: dizziness ORDERING PHYSICIAN: ROMAN NEAL PROCEDURE: ECHO CMP - ECHO 2-D COMPLETE APPROVED REPORT EXAM: Two-dimensional and M-mode echocardiogram with Doppler and color Doppler. INDICATION ICD: Dizziness 2D Dimensions RVDd 3.8 cm LVEF(%) 58.4 (>50%) LVED Vol(simp.) 83.0 mL IVSd 0.6 (0.7-1.1cm) FS(%) 31 % LVES Vol(simp.) 33.0 mL LVDd 4.3 (3.8-5.6cm) LA (2D) 2.9 (1.6-4.0cm) LVEF(%, simp.) 60 % PWd 0.6 (0.7-1.1cm) Ao Root(2D) 2.8 (2.0-3.7cm) LA ESV INDEX (BP) 26.65 mL/m2 IVSs 0.8 cm LVOT diam 2.3 (1.8-2.4cm) LVDs 3.0 (2.5-4.0cm) IVC diam 1.8 cm PWs 0.8 cm Deformation Strain Apical 4 -21.6 % Apical 2 -22.5 % Apical 3 -23.7 % Global Strain -22.6 % M-Mode Dimensions EPSS 0.6 cm LA (MM) 3.4 (1.6-4.0cm) Ao Root(MM) 2.6 (2.0-3.7cm) Aortic Valve AoV Vmax 1.5 m/s Ao Peak GR 8.4 mmHg LVOT Vmax 1.0 m/s AoV VTI 0.3 m Ao Mean GR 4.2 mmHg LVOT VTI 0.23 m INGRID (VMAX) 2.80 cm2 INGRID (VTI) 2.8 cm2 Mitral Valve MV E Vmax 97.9 cm/s DECEL Time 167 ms MV A Vmax 36.8 cm/s P 1/2 T 60 ms E/A ratio 2.7 MVA (PHT) 3.7 cm2 TDI E/E' Medial 13.0 E/E' Lateral 7.7 Medial E' Peak V 7.54 cm/s Lateral E' Peak V 12.79 cm/s Pulmonary Valve PV Vmax 0.9 m/s PV VTI 0.23 m PV Mean GR 1.7 mmHg PV Peak GR 3.0 mmHg PI End Keira. Connor 93.9 cm/s Tricuspid Valve TR Vmax 2.4 m/s RAP (EST) 3 mmHg RVSP 27.6 mmHg TR Peak GR 24.6 mmHg Left Ventricle The left ventricle is normal size. GLS -23.0% There is normal left ventricular wall thickness. LVEF is 60-65%. The left ventricular diastolic function is normal. Right Ventricle The right ventricle is normal size. The right ventricular systolic function is normal. Atria The left atrium size is normal. The right atrium size is normal. Aortic Valve The aortic valve is normal in structure. No aortic regurgitation is present. There is no aortic valvular stenosis. Mitral Valve The mitral valve is normal in structure. There is trivial mitral valve regurgitation noted. There is no mitral valve stenosis. Tricuspid Valve The tricuspid valve is normal in structure. There is no trace of tricuspid valve regurgitation noted. Pulmonic Valve The pulmonary valve is normal in structure. There is trace of pulmonic valvular regurgitation. Great Vessels The aortic root is normal in size. The IVC is normal in size and collapses >50% with inspiration. Pericardium There is no pericardial effusion. Other Information Quality : Adequate Conclusion LVEF is 60-65%. GLS -23.0% DICTATED BY: XUAN SOTELO MD DATE: 06/22/25 0946 ELECTRONICALLY SIGNED BY: XUAN SOTELO MD DATE: 06/22/25 [id number] ASSESSMENT: Dizziness, POA Abdominal pain, POA Lower back pain, POA Tingling of right hand, POA Tobacco dependence, POA Polysubstance abuse, POA PLAN: Dizziness, POA Her head CT, orthostatic vitals are normal Abdominal pain, POA Abdominal ultrasound, chest X-ray are unremarkable. Ordered CT abdomen and pelvis. Lower back pain, POA ordered X-ray sacrum and CT lumbosacral spine. Patient is on a regular diet. ATTESTATION BY PHYSICIAN I have seen and examined the patient. I reviewed the documentation, medical decision making, and treatment plan as noted by the resident provider above. I agree with the findings and plan of care. Kuldip Gama MD, AKSHAY MD Jun 22, 2025 16:28
--- NOTE | 2025-06-22 17:13 | CONS ---
GASTROENTEROLOGY CONSULTATION NOTE Date of Consultation: Jun 22, 2025 Time of Consultation: 17:12 History of Present Illness: This is a 45-year-old female with no past medical history who presented due to dizziness. She has been having epigastric pain. Abdominal ultrasound revealing no acute pathology. CT abdomen and pelvis revealing no acute findings. LFTs and lipase normal. Review of Systems: CONSTITUTIONAL: No malaise or change in sensation of wellbeing. ENMT: No rhinorrhea, otorrhea, sinus pain, ear ache. CARDIOVASCULAR: No angina, palpitations, orthopnea or paroxysmal dyspnea. RESPIRATORY: No SOB. GASTROINTESTINAL: No abdominal pain, nausea, vomiting, diarrhea, hematemesis, melena or change in the patient's habitual bowel movements consistency/number. GENITOURINARY: No dysuria, hematuria or change in bladder continence. MUSCULOSKELETAL: No new muscle pain or decrease in muscular strength. No new joint swelling, redness or tenderness. SKIN: No new rash. Past Medical History: ADDITIONAL PAST MEDICAL HISTORY: [Denies] SOCIAL HISTORY: [Patient smokes half a pack of cigarettes daily, alcohol use, drug use. Patient denies drug use however her drug screen is positive for benzodiazepine, cocaine and marijuana. Patient lives with her oldest daughter, Chapis ponce. And her 4-year-old grandson that she has custody of. SURGICAL HISTORY: [BTL, tonsillectomy] Coded Allergies: No Known Allergies (Unverified Allergy, Unknown, 06/21/25) Physical Exam: GEN: Awake, alert, oriented in person, time and place, and in no acute distress. HEENT: No sinus tenderness. Tympanic membranes were not examined. No rhinorrhea. Oral pharyngeal mucosa is pink, moist and within normal limits. Neck is supple with no cervical lymphadenopathy, thyromegaly or JVD. CHEST: Inspection, palpation and percussion of the chest were unremarkable. Lung auscultation revealed normal breath sounds bilaterally. CARDIAC: PMI is within normal limits. Heart sounds are regular. Normal S1, S2. No gallop or murmur. ABD: Soft, non-tender and not distended. No peritoneal signs on palpation. No organomegaly. Normal bowel sounds. EXT: No cyanosis or clubbing. No edema. SKIN: Intact. No rashes. JOINTS: No evidence of synovitis or acute arthritis. NEURO: Alert and oriented to name, place and person. Cranial nerve examination is unremarkable. No focal motor deficits. Normal speech. Gait is normal. Strength is normal. Vital Sign (Last 24 Hours) 06/22/25 06/22/25 08:48 12:00 Temp 97.9 Pulse 61 Resp 18 B/P (MAP) 118/79 Pulse Ox 99 O2 Delivery Room Air O2 Flow Rate 0 FiO2 21 Laboratory: [ ] Laboratory: Test 06/22/25 05:40 06/21/25 23:00 06/21/25 21:46 Range/Units White Blood Count 9.2 4.8-10.8 K/uL Red Blood Count 3.59 L 4.00-5.50 MIL/uL Hemoglobin 11.8 L 12.0-16.0 g/dL Hematocrit 34.9 L 36-48 % Mean Corpuscular Volume 97.2 79-99 fL Mean Corpuscular Hemoglobin 32.9 27.0-33.0 pg Mean Corpuscular Hemoglobin Concent 33.8 32.0-36.0 g/dL Red Cell Distribution Width 12.5 11.0-15.5 % Platelet Count 275 130-400 K/uL Mean Platelet Volume 10.3 7.5-10.5 fL Immature Granulocyte % (Auto) 0.1 0-1 % Neutrophils (%) (Auto) 45.1 40.0-77.0 % Lymphocytes (%) (Auto) 42.1 21.0-51.0 % Monocytes (%) (Auto) 7.0 3.0-13.0 % Eosinophils (%) (Auto) 5.3 0.0-8.0 % Basophils (%) (Auto) 0.4 0.0-5.0 % Neutrophils # (Auto) 4.1 1.8-7.7 K/uL Lymphocytes # (Auto) 3.9 1.0-4.8 K/uL Monocytes # (Auto) 0.6 0.1-1.0 K/uL Eosinophils # (Auto) 0.49 0.00-0.70 K/uL Basophils # (Auto) 0.04 0.00-0.20 K/uL Absolute Immature Granulocyte (auto 0.01 0-1 K/uL Nucleated Red Blood Cells 0.0 0.0-0.19 % Sodium Level 138 136-145 mmol/L Potassium Level 3.3 L 3.5-5.1 mmol/L Chloride Level 107 101-111 mmol/L Carbon Dioxide Level 25 21-32 mmol/L Blood Urea Nitrogen 10 7-18 mg/dL Creatinine 0.7 0.5-1.0 mg/dL Glomerular Filtration Rate Calc 109 >90 mL/min Random Glucose 87 70-105 mg/dL Total Calcium 8.2 L 8.5-10.1 mg/dL Phosphorus Level 3.1 2.5-4.9 mg/dL Magnesium Level 1.80 1.80-2.40 mg/dL Urine Color YELLOW YELLOW Urine Appearance CLEAR CLEAR Urine pH 6.5 5.0-8.0 Urine Specific [place] 1.021 1.001-1.031 Urine Protein NEGATIVE NEGATIVE mg/dL Urine Glucose (UA) NEGATIVE NEGATIVE mg/dL Urine Ketones NEGATIVE NEGATIVE mg/dL Urine Occult Blood NEGATIVE NEGATIVE Urine Nitrate NEGATIVE NEGATIVE Urine Bilirubin NEGATIVE NEGATIVE mg/dL Urine Urobilinogen 0.2 0.2-1.0 mg/dL Urine Leukocyte Esterase NEGATIVE NEGATIVE Zoey/uL Urine HCG, Qualitative NEGATIVE NEGATIVE Urine Opiates Screen NEGATIVE NEGATIVE Urine Barbiturates Screen NEGATIVE NEGATIVE Urine Phencyclidine Screen NEGATIVE NEGATIVE Urine Amphetamines Screen NEGATIVE NEGATIVE Urine Benzodiazepines Screen POSITIVE H NEGATIVE Urine Cocaine Screen POSITIVE H NEGATIVE Urine Marijuana (THC) Screen POSITIVE H NEGATIVE Total Bilirubin 0.6 0.2-1.0 mg/dL Direct Bilirubin 0.2 0.0-0.3 mg/dL Aspartate Amino Transf (AST/SGOT) 21 10-37 U/L Alanine Aminotransferase (ALT/SGPT) 37 12-78 U/L Alkaline Phosphatase 61 50-136 U/L Total Creatine Kinase 32 21-232 U/L Troponin I High Sensitivity < 4 L 4-50 ng/L Total Protein 6.6 6.0-8.3 g/dL Albumin 3.8 3.5-5.0 g/dL Lipase 19 16-77 U/L Current Medications Medications (Trade) Dose Ordered Sig/Willy Route PRN Reason Start Time Stop Time Status Last Admin Dose Admin Acetaminophen (TYLenol 325MG TAB) 650 mg Q6H PRN PO TEMPERATURE GREATER THAN 101.5 06/22/25 02:00 07/22/25 01:59 Enoxaparin Sodium (Lovenox) 40 mg DAILY SQ 06/22/25 09:00 07/22/25 08:59 06/22/25 08:40 40 MG Famotidine (Pepcid 20mg Tab) 20 mg DAILY PO 06/22/25 09:00 06/22/25 12:07 DC 06/22/25 08:40 20 MG Hydralazine HCl (APRESOLine 20MG INJ) 10 mg Q6H PRN IV For:SBP above 160;DBP above 90 06/22/25 02:00 07/22/25 01:59 Magnesium Sulfate 50 ml @ 0 mls/hr PROTOCOL IV 06/22/25 11:00 07/22/25 10:59 Magnesium Sulfate 50 ml @ 0 mls/hr PROTOCOL PRN IV MAG LEVEL BELOW 2.0 06/22/25 11:00 06/22/25 10:48 DC Morphine Sulfate (morPHINE 2MG SYG) 2 mg Q4H PRN IVP SEVERE PAIN (7-10) 06/22/25 02:00 06/29/25 01:59 06/22/25 15:23 2 MG Nicotine (Nicoderm) 14 mg DAILY TD 06/23/25 09:00 07/23/25 08:59 Ondansetron HCl (zoFRAN 4MG INJ) 4 mg Q6H PRN IV NAUSEA/VOMITING 06/22/25 02:00 07/22/25 01:59 Pantoprazole Sodium (PROTonix 40MG INJ) 40 mg DAILY IVP 06/23/25 09:00 07/23/25 08:59 Potassium Chloride 100 ml @ 100 mls/hr AD PRN IV POTASSIUM PROTOCOL 06/22/25 09:30 07/22/25 09:29 Potassium Chloride (K-Dur/Klor-Con 20meq) 20 meq AD PRN PO POTASSIUM PROTOCOL 06/22/25 09:30 07/22/25 09:29 06/22/25 15:23 20 MEQ Diagnostics / Radiology: [COPY/PASTE HERE IF NO REPORTS PLEASE DELETE SECTION] Assessment: Epigastric pain Plan: EGD in am Continue GI prophylaxis Avoid NSAIDs Antireflux measures Monitor H&H and transfuse as needed Call with questions, concerns or change in clinical status Patient to follow-up at clinic post discharge Thank you for this consult JANN NEGRETE PIECER UP Jun 22, 2025 17:13
--- NOTE | 2025-06-22 17:14 | HMCIMG ---
EXAM: XR Sacrum and Coccyx, 3 Views. CLINICAL HISTORY: 45 year old female with constant pain. COMPARISON: None provided. FINDINGS: BONES: No acute fracture or focal osseous lesion. JOINTS: No dislocation. The joint spaces are normal. SOFT TISSUES: The soft tissues are unremarkable. IMPRESSION: 1. No acute osseous abnormality. /[place]
--- NOTE | 2025-06-22 17:42 | HMCIMG ---
EXAM: CT Abdomen and Pelvis without Intravenous Contrast CLINICAL HISTORY: 45-year-old female with pain in the epigastrium region. TECHNIQUE: Axial computed tomography images of the abdomen and pelvis without intravenous contrast. Dose reduction technique was used including one or more of the following: automated exposure control, adjustment of mA and kV according to patient size, and/or iterative reconstruction. CONTRAST: Without. COMPARISON: None provided. FINDINGS: LUNG BASES: No basilar airspace consolidation or pleural effusion. LIVER: Unremarkable. GALLBLADDER AND BILE DUCTS: Unremarkable. No calcified stone. No ductal dilation. PANCREAS: Unremarkable. SPLEEN: Unremarkable. ADRENAL GLANDS: Unremarkable. KIDNEYS, URETERS, AND BLADDER: Small left renal pelvis stones. Negative for obstructing ureteral stone. No hydronephrosis. No ureteral or bladder calculi. STOMACH AND BOWEL: No obstruction. No wall thickening. No CT evidence of colitis or acute diverticulitis. APPENDIX: No CT evidence for appendicitis. PERITONEUM: No free fluid. No free air. LYMPH NODES: No lymphadenopathy. REPRODUCTIVE: Uterus and adnexa are unremarkable. VASCULATURE: No aortic aneurysm. ABDOMINAL WALL AND SOFT TISSUES: Unremarkable. BONES: Mild degenerative changes in the lower lumbar spine. No fracture or suspicious osseous abnormality. IMPRESSION: 1. No acute findings. 2. Small left renal pelvis stones, negative for obstructing ureteral stone. /[place]
[2025-06-22] MEDS: MAGNESIUM 2GM PREMIX 50ML 50 ML IV SCH (17:53)
[2025-06-23] VITALS (17 sets, daily range): BP systolic 100–119; BP diastolic 55–81; PULSE 49–90; RESP 14–20; TEMP 97.4–98.1; O2SAT 98
[2025-06-23 04:11] LABS: NUCLEATED RED BLOOD CELLS 0.0 % (0.0-0.19); PLATELET COUNT (AUTO) 293.0 K/uL (130-400); RED BLOOD CELL COUNT(AUTO) 3.85 MIL/uL (4.00-5.50); RED CELL DISTRIBUTION WIDTH 12.2 % (11.0-15.5); WHITE BLOOD COUNT (AUTO) 7.9 K/uL (4.8-10.8)
[2025-06-23 04:21] LABS: CREATININE 0.6 mg/dL (0.5-1.0); GLOMERULAR FILTR. RATE CALC 113.0 mL/min (>90); GLUCOSE,RANDOM 79.0 mg/dL (70-105); SODIUM SERUM 136.0 mmol/L (136-145); UREA NITROGEN, BLOOD 8.0 mg/dL (7-18)
[2025-06-23 04:51] LABS: HIV 1&2 ANTIBODY Non-Reactive (Negative)
[2025-06-23] MEDS: NICOTINE 14 MG/ 24 HR PATCH TD SCH (08:52)
--- NOTE | 2025-06-23 11:03 | HMCIMG ---
EXAM: CT Lumbar Spine Without IV Contrast CLINICAL HISTORY: Pain in the lower back. TECHNIQUE: Spiral axial CT images through the lumbar spine were acquired, reconstructed in axial and sagittal projections, and imaged using soft tissue and bone algorithms. Reformatted/MPR images were performed. CT scan is done according to ALARA (As Low as Reasonably Achievable). CONTRAST: None. COMPARISON: None provided. FINDINGS: No acute fracture. Normal lordotic curvature. Anterior osteophytes in L5 and S1 vertebral bodies. Normal vertebral body heights. Severe reduction in the L5-S1 intervertebral disc height with degenerative endplate changes. Normal bone density. 3 mm calculus in the lower pole of the left kidney. 5 mm hyperdense lesion in the left renal pelvis in the interpolar region. Individual spinal levels are described as follows: T12-L1: No disc bulge or herniation. No neural foraminal, lateral recess, or spinal canal stenosis. L1-L2: No disc bulge or herniation. No neural foraminal, lateral recess, or spinal canal stenosis. L2-L3: No disc bulge or herniation. No neural foraminal, lateral recess, or spinal canal stenosis. L3-L4: No disc bulge or herniation. No neural foraminal, lateral recess, or spinal canal stenosis. L4-L5: No disc bulge or herniation. No neural foraminal, lateral recess, or spinal canal stenosis. L5-S1: Moderate posterior disc osteophyte complex of 4 mm indenting the anterior thecal sac. Mild narrowing of both the neural foramina. No significant spinal canal compromise. IMPRESSIONS: 1. Moderate spondylosis at L5-S1 level with a moderate posterior disc osteophyte complex of 4 mm indenting the anterior thecal sac. Mild narrowing of both the neural foramina. No significant spinal canal compromise. 2. No acute fracture or dislocation. 3. 3 mm calculus in the lower pole of the left kidney. 5 mm hyperdense lesion in the left renal pelvis in the interpolar region. Also demonstrated on CT scan of the abdomen and pelvis performed on the same day. /[place]
--- NOTE | 2025-06-23 13:15 | NUR ---
UNABLE TO SEE PATIENT SHE WAS OFF THE FLOOR FOR MRI THEN ENDOSCOPY. Addendum: 06/23/25 at 1749 by MICHELET MADERA PT Amended: Links added.
[2025-06-23 13:24] LABS: HEPATITIS A IGM ANTIBODY Non-Reactive (Nonreactive); HEPATITIS B CORE IGM ANTIBODY Non-Reactive (Negative)
[2025-06-23] MEDS ORDERED: LIDOCAINE PF 100MG/5ML (2%) SYRINGE 5ML ONE (13:58)
--- NOTE | 2025-06-23 15:05 | NUR ---
PT IS BACK FROM EGD PROCEDURE. PT IS SITTING ON THE BED NO S/S OF DISTRESS. VS: 119/65, 66 BPM, SP02 99% ON RA. PT WAS EDUCATED ON CALLING WHEN NEEDING ASSITANCE TO THE BATHROOM. CALL LIGHT WITHIN REACH. BED LOCKED AND LOW.
--- NOTE | 2025-06-23 15:32 | HMCIMG ---
EXAM: MRA Head Without IV contrast. CLINICAL HISTORY: DIZZINESS TECHNIQUE: Magnetic resonance angiography images of the head without intravenous contrast. Three-dimensional MIP reformations performed. CONTRAST: None. COMPARISON: None provided. FINDINGS: INTERNAL CAROTID ARTERIES: No significant stenosis. No aneurysm or AVM. ANTERIOR CEREBRAL ARTERIES: No significant stenosis. No aneurysm or AVM. MIDDLE CEREBRAL ARTERIES: No significant stenosis. No aneurysm or AVM. POSTERIOR CEREBRAL ARTERIES: No significant stenosis. No aneurysm or AVM. BASILAR ARTERY: No significant stenosis. No aneurysm or AVM. VERTEBRAL ARTERIES: No significant stenosis. No aneurysm or AVM. IMPRESSION: Unremarkable MRA of the brain. /[place]
[2025-06-23] MEDS ORDERED: OMEP40CA21 PO (16:11)
--- NOTE | 2025-06-23 17:29 | NUR ---
DISCHARGED PT WAS EDUCATED REGARDING FALLS AT HOME AND SMOKING CESSATION. PT VERBALIZED UNDERSTANDING & IV WAS REMOVED WITHOUT COMPLICATIONS. PT WAS TRANSPORTED TO THE MAIN ENTRANCE VIA WHEELCHAIR BY NURSE. NO S/S OF DISTRESS.
--- NOTE | 2025-06-23 17:57 | DS ---
Discharge Summary Hospital Course Summary: Patient information: Name: Nicolasa Plummer Date of : 1980 Admission date: 06/21/2025 Discharge date: 06/23/2025 Attending physician: Dr. Kuldip Gama Admitting diagnosis: Dizziness, POA Tobacco dependence, POA Polysubstance abuse Discharge diagnosis: Dizziness, POA Abdominal pain, POA Lower back pain, POA Tingling of right hand, POA Tobacco dependence, POA Polysubstance abuse, POA Course in hospital: She is a 45 year old female with no past medical history and she surgical history of BTL and tonsillectomy came to the hospital with complaint of dizziness which started 2weeks, on and off, vertigo, blurred vision in left eye, headache on right side. There was no aggravating factors. She also complained of abdominal pain at epigastrium region. Eating food makes the pain worse. Had nausea yesterday. She also had constant back pain which is more on the right side and she feels like her butt bone is breaking Patient denies any associated chest pain or shortness and breath. She had a fall yesterday and has a scrap on right leg. She also complained of tingling of right hand. She smokes half a pack of cigarettes daily, alcohol use, drug use. In the emergency department her labs, CT head, abdominal ultrasound, chest X-ray, orthostatic vitals are unremarkable. She denies drug use however her drug screen is positive for benzodiazepine, cocaine and marijuana. On 06/22/2025 she has no improvement in symptoms. Her labs are in the normal range except for Hb is 11.8, potassium is 3.3, calcium is 8.2. We ordered CT abdomen and pelvis without contrast for the abdominal pain and CT lumbosacral spine, X-ray sacrum for lower back pain. They are unremarkable. GI was consulted and they recommended endoscopy for her. On 06/23/2025, she feels better but she is complaining of mild abdominal pain. Vital signs and labs are normal. An endoscopy was done and it showed that gastritis biopsied, normal second part of the duodenum biopsied, small hiatal hernia, bulb duodenitis biopsied. GI advised the patient for follow up after 1 week. She is medically stable and so we discharged her on Omeprazole. Procedures performed: Abdominal US, Head CT, Chest X-ray, Carotid Artery US, Echocardiogram US, Abdomen/Pelvis CT, Sacrum and coccyx X-ray, Lumbar spine CT, Head MRA, Endoscopy. Medications on discharge: 1) Omeprazole 40mg 1 cap PO daily. Discharge instructions: 1) Follow up with PCP in 2-3 days for further evaluation and mangement. 2) Follow up with Gastroenterology in 1 week for further evaluation and management. 3) Follow up with your primary care physician in 2 - 3 days after discharge. 4) Continue all medications as prescribed. Do not discontinue or change dosages without consulting your PCP. 5) Gradually resume normal activities as tolerated. 6) Continue a balanced diet . Reduce salt intake to help manage BP. Discharge to: Home Condition on discharge: Stable Bookkeepers Supervisor(s): CONSULTATION REPORT Name: NICOLASA PLUMMER Acct: [id number] MR: [id number] : 1980 Admit Date: 06/22/25 JANN NEGRETE [place] [id number] [place] [address] GASTROENTEROLOGY CONSULTATION NOTE Date of Consultation: Jun 22, 2025 Time of Consultation: 17:12 History of Present Illness: This is a 45-year-old female with no past medical history who presented due to dizziness. She has been having epigastric pain. Abdominal ultrasound revealing no acute pathology. CT abdomen and pelvis revealing no acute findings. LFTs and lipase normal. Review of Systems: CONSTITUTIONAL: No malaise or change in sensation of wellbeing. ENMT: No rhinorrhea, otorrhea, sinus pain, ear ache. CARDIOVASCULAR: No angina, palpitations, orthopnea or paroxysmal dyspnea. RESPIRATORY: No SOB. GASTROINTESTINAL: No abdominal pain, nausea, vomiting, diarrhea, hematemesis, melena or change in the patient's habitual bowel movements consistency/number. GENITOURINARY: No dysuria, hematuria or change in bladder continence. MUSCULOSKELETAL: No new muscle pain or decrease in muscular strength. No new joint swelling, redness or tenderness. SKIN: No new rash. Past Medical History: ADDITIONAL PAST MEDICAL HISTORY: [Denies] SOCIAL HISTORY: [Patient smokes half a pack of cigarettes daily, alcohol use, drug use. Patient denies drug use however her drug screen is positive for benzodiazepine, cocaine and marijuana. Patient lives with her oldest daughter, Chapis plummer. And her 4-year-old grandson that she has custody of. SURGICAL HISTORY: [BTL, tonsillectomy] Coded Allergies: No Known Allergies (Unverified Allergy, Unknown, 06/21/25) Physical Exam: GEN: Awake, alert, oriented in person, time and place, and in no acute distress. HEENT: No sinus tenderness. Tympanic membranes were not examined. No rhinorrhea. Oral pharyngeal mucosa is pink, moist and within normal limits. Neck is supple with no cervical lymphadenopathy, thyromegaly or JVD. CHEST: Inspection, palpation and percussion of the chest were unremarkable. Lung auscultation revealed normal breath sounds bilaterally. CARDIAC: PMI is within normal limits. Heart sounds are regular. Normal S1, S2. No gallop or murmur. ABD: Soft, non-tender and not distended. No peritoneal signs on palpation. No organomegaly. Normal bowel sounds. EXT: No cyanosis or clubbing. No edema. SKIN: Intact. No rashes. JOINTS: No evidence of synovitis or acute arthritis. NEURO: Alert and oriented to name, place and person. Cranial nerve examination is unremarkable. No focal motor deficits. Normal speech. Gait is normal. Strength is normal. Vital Sign (Last 24 Hours) 06/22/25 06/22/25 08:48 12:00 Temp 97.9 Pulse 61 Resp 18 B/P (MAP) 118/79 Pulse Ox 99 O2 Delivery Room Air O2 Flow Rate 0 FiO2 21 Laboratory: [ ] Laboratory: Test 06/22/25 05:40 06/21/25 23:00 06/21/25 21:46 Range/Units White Blood Count 9.2 4.8-10.8 K/uL Red Blood Count 3.59 L 4.00-5.50 MIL/uL Hemoglobin 11.8 L 12.0-16.0 g/dL Hematocrit 34.9 L 36-48 % Mean Corpuscular Volume 97.2 79-99 fL Mean Corpuscular Hemoglobin 32.9 27.0-33.0 pg Mean Corpuscular Hemoglobin Concent 33.8 32.0-36.0 g/dL Red Cell Distribution Width 12.5 11.0-15.5 % Platelet Count 275 130-400 K/uL Mean Platelet Volume 10.3 7.5-10.5 fL Immature Granulocyte % (Auto) 0.1 0-1 % Neutrophils (%) (Auto) 45.1 40.0-77.0 % Lymphocytes (%) (Auto) 42.1 21.0-51.0 % Monocytes (%) (Auto) 7.0 3.0-13.0 % Eosinophils (%) (Auto) 5.3 0.0-8.0 % Basophils (%) (Auto) 0.4 0.0-5.0 % Neutrophils # (Auto) 4.1 1.8-7.7 K/uL Lymphocytes # (Auto) 3.9 1.0-4.8 K/uL Monocytes # (Auto) 0.6 0.1-1.0 K/uL Eosinophils # (Auto) 0.49 0.00-0.70 K/uL Basophils # (Auto) 0.04 0.00-0.20 K/uL Absolute Immature Granulocyte (auto 0.01 0-1 K/uL Nucleated Red Blood Cells 0.0 0.0-0.19 % Sodium Level 138 136-145 mmol/L Potassium Level 3.3 L 3.5-5.1 mmol/L Chloride Level 107 101-111 mmol/L Carbon Dioxide Level 25 21-32 mmol/L Blood Urea Nitrogen 10 7-18 mg/dL Creatinine 0.7 0.5-1.0 mg/dL Glomerular Filtration Rate Calc 109 >90 mL/min Random Glucose 87 70-105 mg/dL Total Calcium 8.2 L 8.5-10.1 mg/dL Phosphorus Level 3.1 2.5-4.9 mg/dL Magnesium Level 1.80 1.80-2.40 mg/dL Urine Color YELLOW YELLOW Urine Appearance CLEAR CLEAR Urine pH 6.5 5.0-8.0 Urine Specific [place] 1.021 1.001-1.031 Urine Protein NEGATIVE NEGATIVE mg/dL Urine Glucose (UA) NEGATIVE NEGATIVE mg/dL Urine Ketones NEGATIVE NEGATIVE mg/dL Urine Occult Blood NEGATIVE NEGATIVE Urine Nitrate NEGATIVE NEGATIVE Urine Bilirubin NEGATIVE NEGATIVE mg/dL Urine Urobilinogen 0.2 0.2-1.0 mg/dL Urine Leukocyte Esterase NEGATIVE NEGATIVE Zoey/uL Urine HCG, Qualitative NEGATIVE NEGATIVE Urine Opiates Screen NEGATIVE NEGATIVE Urine Barbiturates Screen NEGATIVE NEGATIVE Urine Phencyclidine Screen NEGATIVE NEGATIVE Urine Amphetamines Screen NEGATIVE NEGATIVE Urine Benzodiazepines Screen POSITIVE H NEGATIVE Urine Cocaine Screen POSITIVE H NEGATIVE Urine Marijuana (THC) Screen POSITIVE H NEGATIVE Total Bilirubin 0.6 0.2-1.0 mg/dL Direct Bilirubin 0.2 0.0-0.3 mg/dL Aspartate Amino Transf (AST/SGOT) 21 10-37 U/L Alanine Aminotransferase (ALT/SGPT) 37 12-78 U/L Alkaline Phosphatase 61 50-136 U/L Total Creatine Kinase 32 21-232 U/L Troponin I High Sensitivity < 4 L 4-50 ng/L Total Protein 6.6 6.0-8.3 g/dL Albumin 3.8 3.5-5.0 g/dL Lipase 19 16-77 U/L Current Medications Medications (Trade) Dose Ordered Sig/Willy Route PRN Reason Start Time Stop Time Status Last Admin Dose Admin Acetaminophen (TYLenol 325MG TAB) 650 mg Q6H PRN PO TEMPERATURE GREATER THAN 101.5 06/22/25 02:00 07/22/25 01:59 Enoxaparin Sodium (Lovenox) 40 mg DAILY SQ 06/22/25 09:00 07/22/25 08:59 06/22/25 08:40 40 MG Famotidine (Pepcid 20mg Tab) 20 mg DAILY PO 06/22/25 09:00 06/22/25 12:07 DC 06/22/25 08:40 20 MG Hydralazine HCl (APRESOLine 20MG INJ) 10 mg Q6H PRN IV For:SBP above 160;DBP above 90 06/22/25 02:00 07/22/25 01:59 Magnesium Sulfate 50 ml @ 0 mls/hr PROTOCOL IV 06/22/25 11:00 07/22/25 10:59 Magnesium Sulfate 50 ml @ 0 mls/hr PROTOCOL PRN IV MAG LEVEL BELOW 2.0 06/22/25 11:00 06/22/25 10:48 DC Morphine Sulfate (morPHINE 2MG SYG) 2 mg Q4H PRN IVP SEVERE PAIN (7-10) 06/22/25 02:00 06/29/25 01:59 06/22/25 15:23 2 MG Nicotine (Nicoderm) 14 mg DAILY TD 06/23/25 09:00 07/23/25 08:59 Ondansetron HCl (zoFRAN 4MG INJ) 4 mg Q6H PRN IV NAUSEA/VOMITING 06/22/25 02:00 8/22/25 01:59 Pantoprazole Sodium (PROTonix 40MG INJ) 40 mg DAILY IVP 06/23/25 09:00 07/23/25 08:59 Potassium Chloride 100 ml @ 100 mls/hr AD PRN IV POTASSIUM PROTOCOL 06/22/25 09:30 07/22/25 09:29 Potassium Chloride (K-Dur/Klor-Con 20meq) 20 meq AD PRN PO POTASSIUM PROTOCOL 06/22/25 09:30 07/22/25 09:29 06/22/25 15:23 20 MEQ Diagnostics / Radiology: [COPY/PASTE HERE IF NO REPORTS PLEASE DELETE SECTION] Assessment: Epigastric pain Plan: EGD in am Continue GI prophylaxis Avoid NSAIDs Antireflux measures Monitor H&H and transfuse as needed Call with questions, concerns or change in clinical status Patient to follow-up at clinic post discharge Thank you for this consult JANN NEGRETE PUTTY TINTER MAKER Jun 22, 2025 17:13 Electronically Signed by: Electronically Co-Signed by: Procedure(s): [place] [address] IMAGING REPORT Signed PATIENT: NICOLASA PLUMMER MR#: [id number] : 1980 SEX: F AGE: 45 LOCATION: [facility] ORDER 00 STATUS: [facility] REPORT#: [id number] SERVICE 58 REASON: abd pain ORDERING PHYSICIAN: DAVID SILVER PUTTY TINTER MAKER PROCEDURE: ABDRUQLTD - US ABDOMINAL RUQ\LTD EXAM: US Abdomen, Right Upper Quadrant. CLINICAL HISTORY: Abdominal pain. TECHNIQUE: Right upper quadrant sonography performed with image documentation. COMPARISON: None provided. FINDINGS: LIVER: Within normal limits in size and echogenicity. No mass. Liver measures 14.7 cm. GALLBLADDER: The gallbladder appears normal. No gallbladder wall thickening seen. Wall thickness measures 1 mm. No gallstones are evident. COMMON BILE DUCT: Within normal limits in size. Common bile duct measures 5 mm. PANCREAS: The visualized pancreas appears within normal limits. The distal pancreas is obscured by bowel gas. RIGHT KIDNEY: Unremarkable. The right kidney measures 10.5 x 3.4 x 3.9 cm. Normal renal contours. 9 x 9 x 7 mm echogenic lesion likely an angiomyolipoma. No calculus. No hydronephrosis. IMPRESSION: No acute pathology. 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 /[place] DICTATED BY: MARIS DAVID Jr., MD DATE: 06/22/25113 ELECTRONICALLY SIGNED BY: MARIS DAVID Jr., MD DATE: 06/22/25113 [place] [id number] [place] [address] IMAGING REPORT Signed PATIENT: NICOLASA PLUMMER MR#: [id number] : 1980 SEX: F AGE: 45 LOCATION: [facility] ORDER 00 STATUS: [facility] REPORT#: [id number] SERVICE 58 REASON: syncope ORDERING PHYSICIAN: DAVID SILVER PUTTY TINTER MAKER PROCEDURE: HEAD WO - CT HEAD/BRAIN W/O CONTRAST EXAM: Non-contrast CT examination of the Brain CLINICAL HISTORY: Syncope. TECHNIQUE: Thin collimated axial CT images of the brain were obtained, with sagittal and coronal reformatted images also submitted. CT scan done according to ALARA (As Low as Reasonably Achievable). CONTRAST USED: None. COMPARISON: None provided. FINDINGS: No acute intracranial abnormality is present. No acute cortical infarction, hemorrhage, mass, or mass effect. No hydrocephalus or abnormal extra-axial fluid collections. The posterior fossa is unremarkable. The skull base and calvarium are intact. The included portions of the paranasal sinuses and mastoid air cells are clear. IMPRESSION: No acute intracranial abnormality is present. /[place] DICTATED BY: MARIS DAVID Jr., MD DATE: 06/22/25138 ELECTRONICALLY SIGNED BY: MARIS DAVID Jr., MD DATE: 06/22/25138 [place] [id number] [place] [id number] IMAGING REPORT Signed PATIENT: NICOLASA PLUMMER MR#: [id number] : 1980 SEX: F AGE: 45 LOCATION: [facility] ORDER 53 STATUS: [facility] REPORT#: [id number] SERVICE 52 REASON: cp ORDERING PHYSICIAN: DAVID SILVER PUTTY TINTER MAKER PROCEDURE: CXR1VW - CHEST 1VW EXAM: CR Chest, 1 view CLINICAL HISTORY: Chest pain. COMPARISON: None provided. FINDINGS: 0.2 cm calcified granuloma in the left mid zone. Mildly hyperinflated lungs, concerning mild bronchial asthma or COPD. The lungs show no infiltrates or other acute findings. No pleural effusion or pneumothorax. The cardiomediastinal silhouette is within normal limits. No acute osseous abnormality. IMPRESSION: No acute cardiopulmonary process is evident. 0.2 cm calcified granuloma in the left mid zone. Mildly hyperinflated lungs, concerning mild bronchial asthma or COPD. /[place] DICTATED BY: MARIS DAVID Jr., MD DATE: 06/22/25205 ELECTRONICALLY SIGNED BY: MARIS DAVID Jr., MD DATE: 06/22/[address] [place] [address] IMAGING REPORT Signed PATIENT: NICOLASA PLUMMER MR#: [id number] : 1980 SEX: F AGE: 45 [facility] STATUS: ADM IN REPORT#: [id number] SERVICE 1 REASON: dizziness ORDERING PHYSICIAN: ROMAN NEAL PUTTY TINTER MAKER PROCEDURE: CAROTID - US CAROTID DUPLEX EXAM: Ultrasound Duplex Study of Bilateral Carotid and Vertebral Arteries. CLINICAL HISTORY: Dizziness. TECHNIQUE: Real-time 2D ferrera-scale ultrasound with color Doppler and spectral waveform analysis of the bilateral carotid and vertebral arteries. COMPARISON: None provided. FINDINGS: RIGHT CAROTID SYSTEM: Common Carotid Artery (CCA): PSV 98 cm/s. No significant stenosis. Internal Carotid Artery (ICA): PSV 97 cm/s. No significant stenosis. External Carotid Artery (ECA): PSV 103 cm/s. Normal flow. ICA/CCA Ratio: 1.0. Within normal limits. Vertebral Artery: Antegrade flow. Velocity 56 cm/s. Plaque: None visualized. LEFT CAROTID SYSTEM: Common Carotid Artery (CCA): PSV 72 cm/s. No significant stenosis. Internal Carotid Artery (ICA): PSV 101 cm/s. No significant stenosis. External Carotid Artery (ECA): PSV 77 cm/s. Normal flow. ICA/CCA Ratio: 1.4. Within normal limits. Vertebral Artery: Antegrade flow. Velocity 63 cm/s. Plaque: None visualized. SOFT TISSUES: No incidental abnormalities noted. IMPRESSION: No hemodynamically significant stenosis identified in the bilateral carotid or vertebral arteries as per NASCET criteria. /[place] DICTATED BY: MARIS DAVID Jr., MD DATE: 06/22/25328 ELECTRONICALLY SIGNED BY: MARIS DAVID Jr., MD DATE: 06/22/[address] [address] IMAGING REPORT Signed PATIENT: NICOLASA PLUMMER MR#: [id number] : 1980 SEX: F AGE: 45 LOCATION: [facility] ORDER 5 STATUS: [facility] REPORT#: [id number] SERVICE 1 REASON: dizziness ORDERING PHYSICIAN: ROMAN NEAL PROCEDURE: ECHO CMP - ECHO 2-D COMPLETE APPROVED REPORT EXAM: Two-dimensional and M-mode echocardiogram with Doppler and color Doppler. INDICATION ICD: Dizziness 2D Dimensions RVDd 3.8 cm LVEF(%) 58.4 (>50%) LVED Vol(simp.) 83.0 mL IVSd 0.6 (0.7-1.1cm) FS(%) 31 % LVES Vol(simp.) 33.0 mL LVDd 4.3 (3.8-5.6cm) LA (2D) 2.9 (1.6-4.0cm) LVEF(%, simp.) 60 % PWd 0.6 (0.7-1.1cm) Ao Root(2D) 2.8 (2.0-3.7cm) LA ESV INDEX (BP) 26.65 mL/m2 IVSs 0.8 cm LVOT diam 2.3 (1.8-2.4cm) LVDs 3.0 (2.5-4.0cm) IVC diam 1.8 cm PWs 0.8 cm Deformation Strain Apical 4 -21.6 % Apical 2 -22.5 % Apical 3 -23.7 % Global Strain -22.6 % M-Mode Dimensions EPSS 0.6 cm LA (MM) 3.4 (1.6-4.0cm) Ao Root(MM) 2.6 (2.0-3.7cm) Aortic Valve AoV Vmax 1.5 m/s Ao Peak GR 8.4 mmHg LVOT Vmax 1.0 m/s AoV VTI 0.3 m Ao Mean GR 4.2 mmHg LVOT VTI 0.23 m INGRID (VMAX) 2.80 cm2 INGRID (VTI) 2.8 cm2 Mitral Valve MV E Vmax 97.9 cm/s DECEL Time 167 ms MV A Vmax 36.8 cm/s P 1/2 T 60 ms E/A ratio 2.7 MVA (PHT) 3.7 cm2 TDI E/E' Medial 13.0 E/E' Lateral 7.7 Medial E' Peak V 7.54 cm/s Lateral E' Peak V 12.79 cm/s Pulmonary Valve PV Vmax 0.9 m/s PV VTI 0.23 m PV Mean GR 1.7 mmHg PV Peak GR 3.0 mmHg PI End Keira. Connor 93.9 cm/s Tricuspid Valve TR Vmax 2.4 m/s RAP (EST) 3 mmHg RVSP 27.6 mmHg TR Peak GR 24.6 mmHg Left Ventricle The left ventricle is normal size. GLS -23.0% There is normal left ventricular wall thickness. LVEF is 60-65%. The left ventricular diastolic function is normal. Right Ventricle The right ventricle is normal size. The right ventricular systolic function is normal. Atria The left atrium size is normal. The right atrium size is normal. Aortic Valve The aortic valve is normal in structure. No aortic regurgitation is present. There is no aortic valvular stenosis. Mitral Valve The mitral valve is normal in structure. There is trivial mitral valve regurgitation noted. There is no mitral valve stenosis. Tricuspid Valve The tricuspid valve is normal in structure. There is no trace of tricuspid valve regurgitation noted. Pulmonic Valve The pulmonary valve is normal in structure. There is trace of pulmonic valvular regurgitation. Great Vessels The aortic root is normal in size. The IVC is normal in size and collapses >50% with inspiration. Pericardium There is no pericardial effusion. Other Information Quality : Adequate Conclusion LVEF is 60-65%. GLS -23.0% DICTATED BY: XUAN SOTELO MD DATE: 06/22/25 0946 ELECTRONICALLY SIGNED BY: XUAN SOTELO MD DATE: 06/22/[address] [address] IMAGING REPORT Signed PATIENT: NICOLASA PLUMMER MR#: [id number] : 1980 SEX: F AGE: 45 LOCATION: [facility] ORDER 1050 STATUS: ADM IN REPORT#: [id number] SERVICE 1046 REASON: Pain in the epigastrium region ORDERING PHYSICIAN: POLO JONES MD PROCEDURE: ABD PEL WO - CT ABDOMEN/PELVIS W/O CONTRAST EXAM: CT Abdomen and Pelvis without Intravenous Contrast CLINICAL HISTORY: 45-year-old female with pain in the epigastrium region. TECHNIQUE: Axial computed tomography images of the abdomen and pelvis without intravenous contrast. Dose reduction technique was used including one or more of the following: automated exposure control, adjustment of mA and kV according to patient size, and/or iterative reconstruction. CONTRAST: Without. COMPARISON: None provided. FINDINGS: LUNG BASES: No basilar airspace consolidation or pleural effusion. LIVER: Unremarkable. GALLBLADDER AND BILE DUCTS: Unremarkable. No calcified stone. No ductal dilation. PANCREAS: Unremarkable. SPLEEN: Unremarkable. ADRENAL GLANDS: Unremarkable. KIDNEYS, URETERS, AND BLADDER: Small left renal pelvis stones. Negative for obstructing ureteral stone. No hydronephrosis. No ureteral or bladder calculi. STOMACH AND BOWEL: No obstruction. No wall thickening. No CT evidence of colitis or acute diverticulitis. APPENDIX: No CT evidence for appendicitis. PERITONEUM: No free fluid. No free air. LYMPH NODES: No lymphadenopathy. REPRODUCTIVE: Uterus and adnexa are unremarkable. VASCULATURE: No aortic aneurysm. ABDOMINAL WALL AND SOFT TISSUES: Unremarkable. BONES: Mild degenerative changes in the lower lumbar spine. No fracture or suspicious osseous abnormality. IMPRESSION: 1. No acute findings. 2. Small left renal pelvis stones, negative for obstructing ureteral stone. /[place] DICTATED BY: BHARGAVI RUIZ MD DATE: 06/22/251841 ELECTRONICALLY SIGNED BY: BHARGAVI RUIZ MD DATE: 06/22/251841 [place] [address] [place] [address] IMAGING REPORT Signed PATIENT: NICOLASA PLUMMER MR#: [id number] : 1980 SEX: F AGE: 45 LOCATION: [facility] ORDER 1050 STATUS: [facility] REPORT#: [id number] SERVICE 1046 REASON: Constant pain ORDERING PHYSICIAN: POLO JONES MD PROCEDURE: SAC BOBBI 2V - SACRUM/COCCYX 2+VWS EXAM: XR Sacrum and Coccyx, 3 Views. CLINICAL HISTORY: 45 year old female with constant pain. COMPARISON: None provided. FINDINGS: BONES: No acute fracture or focal osseous lesion. JOINTS: No dislocation. The joint spaces are normal. SOFT TISSUES: The soft tissues are unremarkable. IMPRESSION: 1. No acute osseous abnormality. /[place] DICTATED BY: BHARGAVI RUIZ MD DATE: 06/22/251813 ELECTRONICALLY SIGNED BY: BHARGAVI RUIZ MD DATE: 06/22/251813 [place] [address] [address] IMAGING REPORT Signed PATIENT: NICOLASA PLUMMER MR#: [id number] : 1980 SEX: F AGE: 45 LOCATION: [facility] ORDER 06 STATUS: ADM IN REPORT#: [id number] SERVICE 120 REASON: Lower back pain ORDERING PHYSICIAN: POLO JONES MD PROCEDURE: L SPIN WO - CT LUMBAR SPINE W/O CONTRAST EXAM: CT Lumbar Spine Without IV Contrast CLINICAL HISTORY: Pain in the lower back. TECHNIQUE: Spiral axial CT images through the lumbar spine were acquired, reconstructed in axial and sagittal projections, and imaged using soft tissue and bone algorithms. Reformatted/MPR images were performed. CT scan is done according to ALARA (As Low as Reasonably Achievable). CONTRAST: None. COMPARISON: None provided. FINDINGS: No acute fracture. Normal lordotic curvature. Anterior osteophytes in L5 and S1 vertebral bodies. Normal vertebral body heights. Severe reduction in the L5-S1 intervertebral disc height with degenerative endplate changes. Normal bone density. 3 mm calculus in the lower pole of the left kidney. 5 mm hyperdense lesion in the left renal pelvis in the interpolar region. Individual spinal levels are described as follows: T12-L1: No disc bulge or herniation. No neural foraminal, lateral recess, or spinal canal stenosis. L1-L2: No disc bulge or herniation. No neural foraminal, lateral recess, or spinal canal stenosis. L2-L3: No disc bulge or herniation. No neural foraminal, lateral recess, or spinal canal stenosis. L3-L4: No disc bulge or herniation. No neural foraminal, lateral recess, or spinal canal stenosis. L4-L5: No disc bulge or herniation. No neural foraminal, lateral recess, or spinal canal stenosis. L5-S1: Moderate posterior disc osteophyte complex of 4 mm indenting the anterior thecal sac. Mild narrowing of both the neural foramina. No significant spinal canal compromise. IMPRESSIONS: 1. Moderate spondylosis at L5-S1 level with a moderate posterior disc osteophyte complex of 4 mm indenting the anterior thecal sac. Mild narrowing of both the neural foramina. No significant spinal canal compromise. 2. No acute fracture or dislocation. 3. 3 mm calculus in the lower pole of the left kidney. 5 mm hyperdense lesion in the left renal pelvis in the interpolar region. Also demonstrated on CT scan of the abdomen and pelvis performed on the same day. /[place] DICTATED BY: JUDD SHIRLEY MD DATE: 06/23/25 120 ELECTRONICALLY SIGNED BY: JUDD SHIRLEY MD DATE: 06/23/25 120 [place] [address] IMAGING REPORT Signed PATIENT: NICOLASA PLUMMER MR#: [id number] : 1980 SEX: F AGE: 45 LOCATION: [facility] ORDER 105 STATUS: ADM IN REPORT#: [id number] SERVICE 105 REASON: DIZZINESS ORDERING PHYSICIAN: YAEL ANG MD PROCEDURE: MRA HEAD - MR ANGIO HEAD, WO CON EXAM: MRA Head Without IV contrast. CLINICAL HISTORY: DIZZINESS TECHNIQUE: Magnetic resonance angiography images of the head without intravenous contrast. Three-dimensional MIP reformations performed. CONTRAST: None. COMPARISON: None provided. FINDINGS: INTERNAL CAROTID ARTERIES: No significant stenosis. No aneurysm or AVM. ANTERIOR CEREBRAL ARTERIES: No significant stenosis. No aneurysm or AVM. MIDDLE CEREBRAL ARTERIES: No significant stenosis. No aneurysm or AVM. POSTERIOR CEREBRAL ARTERIES: No significant stenosis. No aneurysm or AVM. BASILAR ARTERY: No significant stenosis. No aneurysm or AVM. VERTEBRAL ARTERIES: No significant stenosis. No aneurysm or AVM. IMPRESSION: Unremarkable MRA of the brain. /[place] DICTATED BY: AMOS JEAN BAPTISTE MD DATE: 06/23/25 1631 ELECTRONICALLY SIGNED BY: AMOS JEAN BAPTISTE MD DATE: 06/23/25 1631 Endoscopy (06/23/2025):- Findings:- 1)Mild inflammation was found in the gastric body and in the gastric antrum. Biopsies were taken with a cold forceps for histology. Verification of patient identification for the specimen was done. Estimated blood loss was minimal. 2)The second portion of the duodenum were normal. Biopsies were taken with a cold forceps for histology. Verification of patient identification for the specimen was done. Estimated blood loss was minimal. 3) A small hiatal hernia was present. 4) Moderate inflammation was found in the duodenum bulb. Biopsies were taken with the cold forceps for histology. Verification of patient identification for the specimen was done. Estimated blood loss was minimal. Impression:- gastritis biopsied, normal second part of the duodenum biopsied, small hiatal hernia, bulb duodenitis biopsied. Assessment/Plan: ASSESSMENT: Dizziness, POA Abdominal pain, POA Lower back pain, POA Tingling of right hand, POA Tobacco dependence, POA Polysubstance abuse, POA PLAN: Dizziness, POA Her head CT, orthostatic vitals were normal Abdominal pain, POA Abdominal ultrasound, chest X-ray, CT abdomen and pelvis were unremarkable. EGD was done today and gastritis biopsied, normal second part of the duodenum biopsied, small hiatal hernia, bulb duodenitis biopsied. GI recommended follow up after 1 week after discharge. She is medically stable and so we are discharging her on Omeprazole 40mg. Lower back pain, POA X-ray sacrum and CT lumbosacral spine were normal. Discharge Instructions: 1) Follow up with PCP in 2-3 days for further evaluation and mangement. 2) Follow up with Gastroenterology in 1 week for further evaluation and management. 3) Follow up with your primary care physician in 2 - 3 days after discharge. 4) Continue all medications as prescribed. Do not discontinue or change dosages without consulting your PCP. 5) Gradually resume normal activities as tolerated. 6) Continue a balanced diet . Reduce salt intake to help manage BP. Home Medications: Active Scripts Omeprazole (Omeprazole) 40 Mg Capsule.dr, 1 CAP PO DAILY for 30 Days, #30 CAP 0 Refills Prov:YAEL ANG MD 06/23/25 Time spent arranging discharge: 1-30 minutes ATTESTATION BY PHYSICIAN I have seen and examined the patient. I reviewed the documentation, medical decision making, and treatment plan as noted by the resident provider above. I agree with the findings and plan of care. Kuldip Gama MD, AKSHAY MD Jun 23, 2025 17:57
== END 2025-06-23 17:29 | disposition home or self-care (01) | DRG 392 ==
LOC: EDH 21:24 → EDHIP 06-22 01:36 → 4CH 06-22 03:00
PROVIDERS: ADMIT Internal Medicine; ATTEND Internal Medicine
PROC: 0DB98ZX Excision of Duodenum, Via Natural or Artificial Opening Endoscopic, Diagnostic (ICD-10-PCS; principal; 2025-06-23)
PROC: 0DB78ZX Excision of Stomach, Pylorus, Via Natural or Artificial Opening Endoscopic, Diagnostic (ICD-10-PCS; 2025-06-23)
PROC: 0DB68ZX Excision of Stomach, Via Natural or Artificial Opening Endoscopic, Diagnostic (ICD-10-PCS; 2025-06-23)
DX: K29.70 Gastritis, unspecified, without bleeding (principal); F19.10 Other psychoactive substance abuse, uncomplicated; F17.210 Nicotine dependence, cigarettes, uncomplicated; J45.909 Unspecified asthma, uncomplicated; K29.80 Duodenitis without bleeding; K44.9 Diaphragmatic hernia without obstruction or gangrene; J98.4 Other disorders of lung; Z51.5 Encounter for palliative care; Z98.51 Tubal ligation status
CPT/HCPCS: 36415; 43239; 70450; 70544; 71045; 72131; 72220; 74176; 76705; 80048; 80074; 80076; 80305; 81003; 81025; 82550; 83605; 83690; 83735; 84100; 84484; 85025; 85027; 86701; 87390; 93005; 93306; 93356; 93880; 96374; 96375; 99285; G0378; J1650; J2003; J2270; J2405; J2470; J2704; J3475; J7030; A4215; A4222; A4223; A4620; J3490

== ENCOUNTER 2025-08-11 11:19 | Emergency (ER) | payer OTHER ==
[~2025-08-11] VITALS: Ht 165.1 cm; Wt 61.2 kg
[~2025-08-11 11:19] MED LIST: OMEP40CA21 PO
[2025-08-11 11:43] LABS: IMMATURE GRANULOCYTE ABSOLUTE 0.03 K/uL (0-1); NUCLEATED RED BLOOD CELLS 0.0 % (0.0-0.19); PLATELET COUNT (AUTO) 316 K/uL (130-400); RED BLOOD CELL COUNT(AUTO) 4.03 MIL/uL (4.00-5.50); RED CELL DISTRIBUTION WIDTH 13.3 % (11.0-15.5); WHITE BLOOD COUNT (AUTO) 10.3 K/uL (4.8-10.8)
[2025-08-11] MEDS: 0.9%NACL 1000ML 1,000 ML IV ONE (11:48)
[2025-08-11 11:53] LABS: CREATININE 0.6 mg/dL (0.5-1.0); GLOMERULAR FILTR. RATE CALC 113.0 mL/min (>90); GLUCOSE,RANDOM 87.0 mg/dL (70-105); SODIUM SERUM 138.0 mmol/L (136-145); UREA NITROGEN, BLOOD 14.0 mg/dL (7-18)
[2025-08-11 11:54] LABS: APPEARANCE,URINE CLEAR (CLEAR); GLUCOSE, URINE (UA) NEGATIVE (NEGATIVE); LEUKOCYTE ESTERASE ,URINE NEGATIVE Leu/uL (NEGATIVE); NITRATE,URINE NEGATIVE (NEGATIVE); OCCULT BLOOD,URINE NEGATIVE (NEGATIVE)
[2025-08-11 11:57] LABS: ASPARTATE AMINOTRANSFERASE 14.0 U/L (10-37); TOTAL PROTEIN, SERUM 6.6 g/dL (6.0-8.3)
[2025-08-11 12:01] LABS: ADD UA MICROSCOPIC NO
[2025-08-11] MEDS ORDERED: IOHEXOL-350 75 ML VIAL IV ONE (12:02)
--- NOTE | 2025-08-11 12:30 | HMCIMG ---
CT ABDOMEN/PELVIS W/CONTRAST HISTORY: RLQ abd pain r/o appendicitis. hx of diverticulitis. COMPARISON: None. TECHNIQUE: Sequential axial images through abdomen and pelvis were performed. Patient was given 100 mL of Omnipaque 350 IV. Coronal and sagittal reformats were obtained. FINDINGS: Lung bases: Clear. Liver: Normal size and enhancement throughout. Portal vein: Patent. Gallbladder: Unremarkable. Spleen: Normal. Kidneys: Normal size and shape. Adrenal glands: Normal Pancreas: Unremarkable. Stomach and small bowel: No inflammation or distention noted. Colon: Unremarkable. Appendix: Normal. Bladder: Partially distended and unremarkable. Reproductive system: The [employer] structures demonstrate prominence of the endometrial stripe otherwise appears to be normal... Abdominal aorta: Normal caliber. Skeletal: No acute abnormality. IMPRESSION: No acute process noted.
--- NOTE | 2025-08-11 14:21 | ERN ---
General Chief Complaint: Abdominal Pain Stated Complaint: RLQ PAIN Time Seen by MD: 11:26 Time Seen by Midlevel: 11:26 Source: patient History of Present Illness Initial Comments Patient is a 45-year-old female presenting to the emergency department for evaluation of right flank pain that started this morning. Patient reports a history of diverticulitis. She denies any nausea, vomiting, fever, chills, or any other symptoms at this time Allergies: Coded Allergies: No Known Allergies (Unverified Allergy, Unknown, 06/21/25) Home Meds Active Scripts Omeprazole (Omeprazole) 40 Mg Capsule.dr, 1 CAP PO DAILY for 30 Days, #30 CAP 0 Refills Prov:YAEL ANG MD 06/23/25 Past Medical History Past Medical History: No Pertinent History Past Surgical History: Tonsillectomy, Other Surgical History Other: TUBAL LIGATION ROS Dictation CONSTITUTIONAL: Negative except for HPI HEAD/FACE: Negative except for HPI EENT: Negative except for HPI RESPIRATORY: Negative except for HPI GASTROINTESTINAL/ABDOMINAL: Negative except for HPI GENITOURINARY: Negative except for HPI MUSCULOSKELETAL: Negative except for HPI INTEGUMENTARY: Negative except for HPI NEUROLOGICAL/PSYCH: Negative except for HPI HEMATOLOGIC/LYMPHATIC: Negative except for HPI All Systems Negative, Except as noted above. 13 point review of systems assessed and all negative except for above. Physical Exam Physical Exam Dictation Vital Signs reviewed General Appearance: Alert, oriented x 3, no acute distress, well developed, nourished. Head and Face: non-traumatic. Eyes: PERRL, pink conjunctivas, eyelid no trauma, anterior chamber with arcus senilis. Ears: Pinnas intact and no signs of trauma or erythema ear canals clear and no discharge TM no erythema Nose: No discharge, no bleeding. Oropharynx: Mouth normal, tongue pink, pharynx clear,no erythema, tonsils no exudates, no abscesses noted, mucous membrane moist Neck: Supple, non-tender, no thyromegaly, no masses, no JVD, no bruits Breast:Deferred Chest:No tenderness, no crepitus, no paradoxical movement, no retractions Lungs:Clear, well-ventilated, symmetric, no rales, no wheezing, no rhonchi, no stridor, good breath sounds bilaterally Heart: Regular rate, regular rhythm, no murmur, no gallops Vascular: no peripheral edema, Abdomen: Soft, positive bowel sounds, nondistended, no guarding, nontender, no rebound, no masses no hepatomegaly, no splenomegaly, no Muller's sign, no hernias. Rectal: Deferred Genital: Deferred Neurological: Normal speech, motor function intact, sensory function intact Musculoskeletal: Neck nontender, full range of motion, back nontender, full range of motion, Extremities: nontender, full range of motion Skin: Color pink, dry, no turgor, no rash, no lacerations, no abrasions, no contusions. Lymphatic: Deferred Results Laboratory and Microbiology Lab and Micro Result Laboratory Tests Test 08/11/25 11:33 08/11/25 11:39 White Blood Count 10.3 K/uL (4.8-10.8) Red Blood Count 4.03 MIL/uL (4.00-5.50) Hemoglobin 13.3 g/dL (12.0-16.0) Hematocrit 39.4 % (36-48) Mean Corpuscular Volume 97.8 fL (79-99) Mean Corpuscular Hemoglobin 33.0 pg (27.0-33.0) Mean Corpuscular Hemoglobin Concent 33.8 g/dL (32.0-36.0) Red Cell Distribution Width 13.3 % (11.0-15.5) Platelet Count 316 K/uL (130-400) Mean Platelet Volume 10.2 fL (7.5-10.5) Immature Granulocyte % (Auto) 0.3 % (0-1) Neutrophils (%) (Auto) 63.1 % (40.0-77.0) Lymphocytes (%) (Auto) 28.6 % (21.0-51.0) Monocytes (%) (Auto) 4.8 % (3.0-13.0) Eosinophils (%) (Auto) 2.6 % (0.0-8.0) Basophils (%) (Auto) 0.6 % (0.0-5.0) Neutrophils # (Auto) 6.5 K/uL (1.8-7.7) Lymphocytes # (Auto) 3.0 K/uL (1.0-4.8) Monocytes # (Auto) 0.5 K/uL (0.1-1.0) Eosinophils # (Auto) 0.27 K/uL (0.00-0.70) Basophils # (Auto) 0.06 K/uL (0.00-0.20) Absolute Immature Granulocyte (auto 0.03 K/uL (0-1) Nucleated Red Blood Cells 0.0 % (0.0-0.19) Sodium Level 138 mmol/L (136-145) Potassium Level 3.7 mmol/L (3.5-5.1) Chloride Level 105 mmol/L (101-111) Carbon Dioxide Level 26 mmol/L (21-32) Blood Urea Nitrogen 14 mg/dL (7-18) Creatinine 0.6 mg/dL (0.5-1.0) Glomerular Filtration Rate Calc 113 mL/min (>90) Random Glucose 87 mg/dL (70-105) Total Calcium 8.6 mg/dL (8.5-10.1) Total Bilirubin 0.6 mg/dL (0.2-1.0) Aspartate Amino Transf (AST/SGOT) 14 U/L (10-37) Alanine Aminotransferase (ALT/SGPT) 26 U/L (12-78) Alkaline Phosphatase 62 U/L (50-136) Total Protein 6.6 g/dL (6.0-8.3) Albumin 3.7 g/dL (3.5-5.0) Serum Test, Qualitative NEGATIVE (NEGATIVE) Urine Color LIGHT-YELLOW (YELLOW) Urine Appearance CLEAR (CLEAR) Urine pH 7.0 (5.0-8.0) Urine Specific [place] 1.018 (1.001-1.031) Urine Protein NEGATIVE mg/dL (NEGATIVE) Urine Glucose (UA) NEGATIVE mg/dL (NEGATIVE) Urine Ketones NEGATIVE mg/dL (NEGATIVE) Urine Occult Blood NEGATIVE (NEGATIVE) Urine Nitrate NEGATIVE (NEGATIVE) Urine Bilirubin NEGATIVE mg/dL (NEGATIVE) Urine Urobilinogen 0.2 mg/dL (0.2-1.0) Urine Leukocyte Esterase NEGATIVE Zoey/uL Labs Reviewed?: Yes MDM MDM: Differential diagnosis: Diverticulitis, acute appendicitis, urinary tract infection, ureter stone, pyelonephritis There are no social concerns with this patient. Prescription drug management Prescriptions will include: None Medical management and examination interpretation discussions were had by me with other qualified healthcare professionals as indicated for the patient's ca re. ED Course Orders Procedure Category Date Status Time Cbc With Differential LAB 9/11/25 Complete 11:29 Comprehensive LAB 08/11/25 Complete Metabolic Panel 11:29 Urinalysis Profile LAB 08/11/25 Complete 11:29 Ct Abdomen/Pelvis CT 08/11/25 Resulted W/Contrast 11:29 0.9%Nacl 1000ml (Ns PHA 08/11/25 Complete 1000ml) 11:30 Ketorolac PHA 08/11/25 Complete Tromethamine 15mg/Ml 11:30 Testing, LAB 08/11/25 Complete Serum Hcg 11:29 Current Medications Medications (Trade) Dose Ordered Sig/Willy Route PRN Reason Start Time Stop Time Status Last Admin Dose Admin Ketorolac Tromethamine (toRADol) 15 mg ONCE ONCE IV 08/11/25 11:30 08/11/25 11:32 DC 08/11/25 11:48 Sodium Chloride 1,000 ml @ 0 mls/hr ONCE ONCE IV 08/11/25 11:30 08/11/25 11:31 DC 08/11/25 11:48 Vital Signs Date Time Temp Pulse Resp B/P (MAP) Pulse Ox O2 Delivery O2 Flow Rate FiO2 08/11/25 11:41 98.1 65 16 110/56 98 Room Air* 0 21 08/11/25 11:21 98.1 67 16 109/55 97 Room Air DX & DISP Disposition: Discharge Departure Impression: Primary Impression: Right flank pain Condition: Stable Additional Instructions: Your blood work today is unremarkable. Your CBC shows a normal white blood cell count. No signs of systemic infection. Your electrolytes are normal. Your kidney function is normal. You are not anemic. Your urinalysis does not show any evidence of infection. Your CT scan is normal. There was no evidence of a kidney stone, acute appendicitis, diverticulitis, or any other infection or abnormality. You will need to follow up with your primary care doctor for further evaluation. You may take Tylenol and Motrin as needed for pain. Referrals: JIMMY PEPE DO (PCP) I have reviewed the case, and I agree with, Diagnosis and Plan I performed the substantive portion of the visit. I have reviewed and personally made and approve the management plan that is documented in the note by myself or the WILLIE. I acknowledge for responsibility for the patient's management plan. ROBYN CRAWFORD Aug 11, 2025 14:21
[2025-08-11 14:43] VITALS: BP 116/62; PULSE 66; RESP 16; TEMP 98.1; O2SAT 98
== END 2025-08-11 14:53 | disposition home or self-care (01) ==
LOC: EDH 11:19
DX: R10.9 Unspecified abdominal pain (principal); Z79.899 Other long term (current) drug therapy; Z90.89 Acquired absence of other organs; Z98.51 Tubal ligation status
CPT/HCPCS: 99285; 74177; 96374; 80053; 84703; 85025; 81003; 36415; J1885; Q9967